=== PATIENT | male | born 1970 | race Caucasian/White ===

== ENCOUNTER 2020-08-09 12:33 | Observation (INO) | payer BC, SELFPAY ==
[2020-08-09] VITALS (7 sets, daily range): BP systolic 124–138; BP diastolic 69–82; PULSE 72–76; RESP 18–20; TEMP 36.7–38; O2SAT 93–97; BMI 35.2; BMI 34.7
--- NOTE | 2020-08-09 12:44 | ECG_ITS ---
APPROVED REPORT Exam: Resting ECG HR:78 bpm ECG Measurements Heart Rate 78 AXES LA 160 P 56 QRSd 94 QRS -51 QT 388 T 13 QTc 442 Conclusion Normal sinus rhythm Left anterior fascicular block Nonspecific T wave abnormality Abnormal ECG Electronically signed by : Denton Cervantes, 08/10/2020 06:01:03
--- NOTE | 2020-08-09 12:45 | HMH.EDGENADL ---
ED Disposition Clinical Impression: Pneumonia due to COVID-19 virus, Hypoxia Disposition: Admitted as Observation Condition on Discharge: Fair - Critical Care Critical Care Time: No Attestation: On , the high probability of a clinically significant, sudden or life threatening deterioration of the following system(s) required my full and direct attention, intervention and personal management. The time I documented below is in addition to time spent performing reported procedures but includes the following listed in this critical care notation. Medical Decision Making - Evin Inquiry Pt receiving controlled substance: No Vital Signs: 08/09/20 12:34 08/09/20 13:22 Temperature 99.0 F Temperature Source Oral Pulse Rate [Left Radial] 74 Respiratory Rate 20 Blood Pressure [Right Arm] 124/82 Blood Pressure Mean [Right Arm] 96 Blood Pressure Source [Right Arm] Automatic Cuff Blood Pressure Position [Right Arm] Sitting 02 Sat by Pulse Oximetry 93 L 94 L Oxygen Delivery Method Room Air Nasal Cannula Oxygen Flow Rate (LPM) 2 - Lab Data Lab results reviewed: Yes: I reviewed the patient's lab results. Lab Results 08/09/20 12:56: WBC 3.5 L, RBC 5.97, Hgb 17.8, Hct 50.3, MCV 84.3, MCH 29.9, MCHC 35.5 H, RDW 13.7, Plt Count 174, MPV 7.6, Neut % (Auto) 62.4, Lymph % (Auto) 29.7, [place] % (Auto) 5.4, Eos % (Auto) 2.1, Baso % (Auto) 0.4, Neut # (Auto) 2.2, Lymph # (Auto) 1.0, [place] # (Auto) 0.2, Eos # (Auto) 0.1, Baso # (Auto) 0.0 08/09/20 12:56: Lactate 1.1 Result diagrams: 08/09/20 12:56 Orders (Tests/Meds): ORDERS Category Date Time Status XR chest portable Stat Exams 08/09/20 13:22 Taken Comprehensive Metabolic Panel Stat Lab 08/09/20 12:56 Received Procalcitonin Stat Lab 08/09/20 12:56 Received Trop I [Troponin I] Stat Lab 08/09/20 12:56 Received Troponin I Q3H Lab 08/09/20 16:30 Ordered Troponin I Q3H Lab 08/09/20 19:30 Ordered Blood Culture Stat Micro 08/09/20 12:56 Received - Radiology Data #1 Image(s): Chest Image Reviewed: Yes I reviewed the patient's radiology image bilateral patchy infiltrates c/w covid-19 pneumonia - ECG Data Tracing #1 EKG interpreted by Fab Cobos MD: Rhythm: sinus Rate: 78 [place]: Left Ectopy: none Conduction: normal ST Segment Changes: none T Wave Changes: Nonspecific Q Waves: none No evidence of acute ischemia or injury - Physician Consults Physician Consulted: Albert Time: 13:45 Reason -: Admission, Pt condition Comment/Response: Agrees to admit the patient to the hospital. We discussed the patient's clinical information, including history, exam, laboratory and radiology results and ED course. Per hospital procedure, I will write temporary bridge inpatient orders on the patient. Specific orders requested by the admitting physician: Oxygen, COVID-19 protocol with remdesivir and dexamethasone. No antibiotics. General Adult HPI - General Stated complaint: Covid +, O2 low, dyspnea Time Seen by Provider: 08/09/20 13:15 - History of Present Illness HPI narrative: The patient has COVID-19. He had his nasal swab performed 9 days ago. He now presents complaining of shortness of breath. Shortness of breath started yesterday. He has been checking his pulse ox at home and this morning it went down to 89%, therefore he comes to the emergency department. His symptoms prior to that were fever, cough, headache, body aches, diarrhea. Denies vomiting. He has hypertension and hyperlipidemia. He does not have any known heart disease or lung disease. He is a non-smoker. He does not have diabetes. - Related Data Home Medications Medication Instructions Recorded Confirmed Amlodipine Besylate [Amlodipine 10 mg PO DAILY 08/09/20 08/09/20 10mg Tab] Rosuvastatin Calcium 20 mg PO DAILY 08/09/20 08/09/20 lisinopriL [Lisinopril 40mg Tablet] 40 mg PO DAILY 08/09/20 08/09/20 Allergies Allergy/AdvReac Type Severity R
--- NOTE | 2020-08-09 13:22 | XR_ITS ---
PROCEDURE: XR CHEST PORTABLE CLINICAL HISTORY: covid-19, soa, cough, fever COMPARISON: CR CXR1 CHEST-PORTABLE from 10/18/2014 CR CXR CHEST(2 VIEWS-NOT PORTABLE) from 05/27/2017 FINDINGS: The cardiomediastinal silhouette and pulmonary vascularity are within normal limits. Patchy infiltrate is present in the right upper lobe right lower lobe and left midlung with ground-glass attenuation consistent with Covid19 pneumonia No acute bony abnormalities. IMPRESSION: Bilateral pneumonia which may be related to Covid19 pneumonia Dictated by: Rodriguez Ellison MD 08/09/2020 14:01 Rodriguez Ellison MD in [place] 08/09/2020 14:01
[2020-08-09 13:42] LABS: Basophils % 0.4 % (0.1-2.0); Eosinophils # 0.1 K/mm3 (0.0-0.4); Eosinophils % 2.1 % (0.1-12.0); Hematocrit 50.3 % (42.0-52.0); Hemoglobin 17.8 g/dL (14.1-18.0); Lymphocytes % 29.7 % (10-50); Mean Corpuscular HGB Conc 35.5 g/dL (31.8-35.4); Mean Corpuscular Hemoglobin 29.9 pg (27.0-31.2); Mean Corpuscular Volume 84.3 fl (80-94); Mean Platelet Volume 7.6 fl (7.4-10.4); Monocytes # 0.2 K/mm3 (0.1-1.0); Monocytes % 5.4 % (1.7-9.3); Neutrophils # 2.2 K/mm3 (1.8-7.8); Neutrophils % 62.4 % (37.0-80.0); Platelet Count 174 K/mm3 (142-424); Red Blood Count 5.97 M/mm3 (4.60-6.20); Red Cell Distribution Width 13.7 % (11.5-17.5); White Blood Count 3.5 K/mm3 (4.8-10.8)
[2020-08-09 13:46] LABS: Lactic Acid 1.1 mmol/L (0.7-2.1)
[2020-08-09 14:10] LABS: Alanine Aminotransferase 29 U/L (12-78); Albumin Level 3.8 g/dl (3.5-5.0); Albumin/Globulin Ratio 1.2 (1.1-1.8); Alkaline Phosphatase 64 U/L (38-126); Anion Gap 11.8 mEq/L (5-15); Aspartate Amino Transferase 39 U/L (17-59); Bilirubin,Total 0.5 mg/dl (0.2-1.3); Blood Urea Nitrogen 13 mg/dl (9-20); Calcium 8.9 mg/dl (8.4-10.2); Carbon Dioxide 32 mmol/L (22.0-30.0); Creatinine Clearance Estimated 129 mL/min (50-200); Estimated Glomerular Filt Rate 79 ml/min (>60); GFR (African American) 96 ML/MIN (>60); Globulin 3.3 g/dL (1.3-3.2); Glucose 107 mg/dl (74-100); Potassium 3.8 mmoL/L (3.5-5.1); Sodium 138 mmol/L (136-145); Total Protein,Serum 7.1 g/dl (6.3-8.2)
[2020-08-09 14:12] LABS: Chloride 98 mmol/L (98-107)
[2020-08-09 14:23] LABS: Troponin I < 0.01 ng/ml (0.00-0.034)
[2020-08-09 14:27] LABS: Procalcitonin 0.125 ng/mL (0.0-2.0)
[2020-08-09 14:40] LABS: Adenovirus,PCR Not Detected (NotDetected); Bordetella Pertussis Not Detected (NotDetected); Chlamydophila Pneumoniae, PCR Not Detected (NotDetected); Coronavirus 229E Not Detected (NotDetected); Coronavirus NL63 Not Detected (NotDetected); Coronavirus OC43 Not Detected (NotDetected); Coronovirus HKU1,PCR Not Detected (NotDetected); Human Metapneumovirus Not Detected (NotDetected); Influenza A, PCR Not Detected (NotDetected); Influenza AH1, 2009 Not Detected (NotDetected); Influenza AH1, PCR Not Detected (NotDetected); Influenza AH3,PCR Not Detected (NotDetected); Influenza B, PCR Not Detected (NotDetected); Mycoplasma Pneumoniae, PCR Not Detected (NotDetected); Parainfluenza 1, PCR Not Detected (NotDetected); Parainfluenza 2, PCR Not Detected (NotDetected); Parainfluenza 3, PCR Not Detected (NotDetected); Parainfluenza 4, PCR Not Detected (NotDetected); Respiratory Syncytial Virus Not Detected (NotDetected); Rhinovirus/Enterovirus Not Detected (NotDetected)
--- NOTE | 2020-08-09 15:47 | HMH.PHAVTE ---
[facility] Pharmacy VTE Monitoring - Patient Demographics Admission date: 08/09/20 Report Date: 08/09/20 Time: 15:47 Allergies/Adverse Reactions: Patient Allergies No Known Allergies Allergy (Unverified 07/14/17 15:37) Height: 1.7 m Weight: 102.058 kg Patient Problems: Current Active Problems Pneumonia due to COVID-19 virus (Acute) Hypoxia (Acute) - VTE Risk Labs: VTE Related Lab Results Hgb 17.8 g/dL (14.1-18.0) 08/09/20 12:56 Hct 50.3 % (42.0-52.0) 08/09/20 12:56 Plt Count 174 K/mm3 (142-424) 08/09/20 12:56 BUN 13 mg/dl (9-20) 08/09/20 12:56 Creatinine 1.00 mg/dl (0.66-1.25) 08/09/20 12:56 Estimated Creat Clear 129 mL/min (50-200) 08/09/20 12:56 Clinical Trial Participant: No - Prophylaxis VTE Prophylaxis Ordered?: Yes Types of VTE Prophylaxis: TEDS Knee High
[2020-08-09 16:05] LABS: Coronavirus 19, PCR Detected (NotDetected)
--- NOTE | 2020-08-09 16:05 | PC.NURSE ---
Pt arrived via w/c to the floor at this time
--- NOTE | 2020-08-09 16:27 | HMH.PHAINT ---
MEDICATION RECONCILIATION COMPLETED ON PATIENT USING EXTERNAL FILL HISTORY FROM PHARMACY. -WADE ALLEN, MEMOD
--- NOTE | 2020-08-09 20:02 | PC.NURSE ---
PT IS SITTING ON THE SOB WATCHING TV AT THIS TIME. ALERT AND ORIENTED X4. O2 SATURATION 94-96% ON 2 NC. LUNG SOUNDS HAVE FINE CRACKLES IN THE BASES. ABDOMEN SOFT/NON TENDER WITH ACTIVE BOWEL SOUNDS. PT STATED HIS LAST BOWEL MOVEMENT WAS TODAY. EATING AND DRINKING FAIR. VSS. WILL CONTINUE TO MONITOR.
[2020-08-10] VITALS: BP 117/73; PULSE 64; RESP 18; TEMP 36.6; O2SAT 97
[2020-08-10 04:00] VITALS: BP 140/77; PULSE 90; RESP 18; TEMP 36.4; O2SAT 98
--- NOTE | 2020-08-10 04:54 | PC.NURSE ---
Pt has been pleasant and cooperative this shift. A&O X4. No complaints of pain or SOA. Pt is receiving O2 via NC @ 2 LPM with sats. >90%. Lungs CTA. Skin is C/D/I. No edema noted. 2000 temperature noted to 100.4. After administration of Tylenol, temperature noted to be 98.0. Pt ambulates independently. Pt uses the urinal to void clear, yellow urine without issue. No BM thus far this shift. 20 G peripheral IV in the LT AC is patent and infusing NS @ 100 ML/HR. VSS. Call light within reach. Will continue to monitor.
--- NOTE | 2020-08-10 06:00 | XR_ITS ---
PROCEDURE: XR CHEST PORTABLE CLINICAL HISTORY: covid Covid19 pneumonia COMPARISON: CR CXR1 CHEST-PORTABLE from 10/18/2014 CR CXR CHEST(2 VIEWS-NOT PORTABLE) from 05/27/2017 CR XR CHEST PORTABLE from 08/09/2020 FINDINGS: The cardiomediastinal silhouette and pulmonary vascularity are within normal limits. Patchy infiltrate in the right upper lobe appears slightly improved. No change right lower lobe infiltrate. Left perihilar infiltrate appears slightly improved. No acute bony abnormalities. IMPRESSION: Overall slight improvement in the bilateral pneumonia Dictated by: Rodriguez Ellison MD 08/10/2020 06:47 Rodriguez Ellison MD in [place] 08/10/2020 06:47
[2020-08-10 07:55] VITALS: BP 137/73; PULSE 73; RESP 19; TEMP 37; O2SAT 95
[2020-08-10 08:00] VITALS: O2SAT 97
--- NOTE | 2020-08-10 08:36 | CT_ITS ---
PROCEDURE: CT ANGIO CHEST CLINCIAL INDICATION: covid r/o pe Shortness of air, cough, Covid19 pneumonia COMPARISON: CR XR CHEST PORTABLE from 08/10/2020 TECHNIQUE: IV Contrast: 70ML Isovue 370 Axial images obtained with sagittal and coronal reformats. All CT scans at the facility use one or more dose reduction, viz: automated exposure control, ma/kV adjustment per patient size (including targeted exams where dose is matched to indication, i.e. head), or iterative reconstruction technique. FINDINGS: No mediastinal or hilar mass . No evidence of aortic aneurysm dissection or pulmonary embolus. There are few scattered small hilar and mediastinal lymph nodes which may be reactive. There are scattered multifocal areas of ground-glass infiltrates along with consolidation in the lower lobes posteriorly consistent with bilateral pneumonia which may be related Covid19. There is borderline cardiomegaly.. There are trace effusions on both sides. No cavitation. There is nonspecific thickening of the distal esophagus. Upper abdominal images show cholelithiasis. There is mild wedging of L1 which may be chronic. IMPRESSION: 1. No evidence of pulmonary embolus. 2. Bilateral pneumonia in the lower lobes posteriorly and multi focal in the upper lobes which may be related to Covid19 with trace bilateral effusions. 3. Cholelithiasis Dictated by: Rodriguez Ellison MD 08/10/2020 10:00 Rodriguez Ellison MD in [place] 08/10/2020 10:00
--- NOTE | 2020-08-10 10:41 | SW/DCPLANNER ---
Addendum entered by Charity Saldivar 08/10/20 10:51: Bess with [facility] has confirmed patient information/order has been reviewed and O2 will be delivered to [facility] today. Original Note: This patient is planned to discharge home later today. Patient information and order has been faxed to [facility]. I will follow up with [facility] once patient information is reviewed.
[2020-08-10 12:00] VITALS: BP 130/61; PULSE 80; RESP 20; TEMP 36.8; O2SAT 99
--- NOTE | 2020-08-10 12:47 | HMH.HPDC ---
General - General Admission date:: 08/09/20 Discharge date: 08/10/20 *Admission Date: 08/09/20 *Chief complaint: soa *History of present illness: 49 yr old male presented to ED with c/o of soa. Patient has COVID-19, Nasal swab performed 9 days ago. Patient complaining of shortness of breath, Shortness of breath started yesterday. Patient states he has been checking his pulse ox at home and this morning it went down to 89%. Patient states history hypertension and hyperlipidemia. Patient admitted for covid related penumonia. [facility] History I have reviewed the patient's past medical history: Yes Medical History: Reports:: Hyperlipidemia, Hypertension Denies:: Cancer, Diabetes Mellitus Type 1, Diabetes Mellitus Type 2, MRSA *Have you ever received a pneumonia vaccine?: No *Have you received a flu vaccine this season?: No Amputation: No Fractures: No - *Social History Last grade of school completed: High school graduate Smoking Status: Never smoker Alcohol Intake: never *Occupational Status:: employed Housing: house Household Members: spouse *Travel in the last 8 weeks: None Family Hx:: Cancer Review of Systems - Review of Systems Review of systems:: pertinent systems reviewed and negative unless documented below - Constitutional Reports fatigue, Reports fever(s), Denies body ache(s) - Eyes Denies blurry vision - ENT Denies sinus pain - *Cardiovascular Reports shortness of breath, Reports shortness of breath with activity, Denies chest pain with activity - *Respiratory Reports chest congestion, Reports cough, Reports shortness of breath - *Gastrointestinal Denies nausea, Denies vomiting - *Genitourinary Denies urinary frequency - *Musculoskeletal Denies muscle weakness - Integumentary/Breasts Denies rash - *Neurologic Reports headache(s) - Psychiatric Denies anxiety - Endocrine Denies flushing - Hematologic/Lymphatic Denies enlarged lymph nodes - Allergic/Immunologic Denies itchy eyes Exam Vital signs and Labs for Last 24 Hours: Temp Pulse Resp BP Pulse Ox 98.3 F 80 20 130/61 99 08/10/20 12:00 08/10/20 12:00 08/10/20 12:00 08/10/20 12:00 08/10/20 12:00 Laboratory Results - last 24 hr 08/09/20 12:56: WBC 3.5 L, RBC 5.97, Hgb 17.8, Hct 50.3, MCV 84.3, MCH 29.9, MCHC 35.5 H, RDW 13.7, Plt Count 174, MPV 7.6, Neut % (Auto) 62.4, Lymph % (Auto) 29.7, [place] % (Auto) 5.4, Eos % (Auto) 2.1, Baso % (Auto) 0.4, Neut # (Auto) 2.2, Lymph # (Auto) 1.0, [place] # (Auto) 0.2, Eos # (Auto) 0.1, Baso # (Auto) 0.0 08/09/20 12:56: Sodium 138, Potassium 3.8, Chloride 98, Carbon Dioxide 32 H, Anion Gap 11.8, BUN 13, Creatinine 1.00, Estimated Creat Clear 129, Estimated GFR 79, Est GFR ( Amer) 96, Glucose 107 H, Calcium 8.9, Total Bilirubin 0.5, AST 39, ALT 29, Alkaline Phosphatase 64, Troponin I < 0.01, Total Protein 7.1, Albumin 3.8, Globulin 3.3 H, Albumin/Globulin Ratio 1.2, Procalcitonin 0.125 08/09/20 12:56: Lactate 1.1 08/09/20 14:36: Chlamy pneumoniae PCR Not detected, Adenovirus (PCR) Not detected, B. pertussis DNA (PCR) Not detected, Coronavirus OC43 (PCR) Not detected, Coronavirus HKU1 (PCR) Not detected, Coronavirus 229E (PCR) Not detected, SARS-CoV-2 (PCR) Detected A, Coronavirus NL63 (PCR) Not detected, Human Metapneumovir PCR Not detected, Influenza A (H1) PCR Not detected, Influ A (H1N1/09) PCR Not detected, Influenza A (H3) PCR Not detected, Influenza Type A (PCR) Not detected, Influenza Type B (PCR) Not detected, M. pneumoniae (PCR) Not detected, Parainfluenza 1 (PCR) Not detected, Parainfluenza 2 (PCR) Not detected, Parainfluenza 3 (PCR) Not detected, Parainfluenza 4 (PCR) Not detected, RSV (PCR) Not detected, Entero/Rhino (PCR) Not detected I & O for Last 24 hours: Intake & Output 08/08/20 08/09/20 08/10/20 08/11/20 11:59 11:59 11:59 11:59 Intake Total 2126 / 2126 Output Total 1000 / 1000 Balance 1126 / 1126 Weight 235 lb 6 oz - Constitutional
--- NOTE | 2020-08-10 13:43 | HMH.PULMCON ---
*Admission Date: 08/09/20 *Reason for consult:: Acute hypoxic respiratory failure, COVID-19 pneumonia *History of present illness: Mr. Major is a 49-year-old male no prior respiratory complaints never smoker recently diagnosed with COVID-19 pneumonia August 09 no symptoms at that time, discharged home presented to the hospital with worsening respiratory failure, patient admission needing 2 L nasal cannula eventually weaned to room air. Pulmonary was called for further management. Patient on further questioning today denies any fevers, chills, productive phlegm. His main symptoms are fatigue. Patient states symptoms significantly improved since admission. [facility] History Medical History: Reports:: Hyperlipidemia, Hypertension Denies:: Cancer, Diabetes Mellitus Type 1, Diabetes Mellitus Type 2, MRSA *Have you ever received a pneumonia vaccine?: No *Have you received a flu vaccine this season?: No Amputation: No Fractures: No - *Social History Last grade of school completed: High school graduate Smoking Status: Never smoker Alcohol Intake: never *Occupational Status:: employed Housing: house Household Members: spouse *Travel in the last 8 weeks: None Family Hx:: Cancer ROS - Review of Systems Review of systems:: pertinent systems reviewed and negative unless documented below - Cons Reports body ache(s) - Card Reports shortness of breath with activity, Reports lightheadedness, Denies leg swelling - Resp Respiratory: Reports chest congestion, Reports cough, Reports non-productive cough, Reports dyspnea on exertion, Denies excessive phlegm production - GI Gastrointestingal: Reports: system reviewed and no additional complaints, except as docu - [place] Musculoskeletal: Reports system reviewed and no additional complaints, except as docu Meds Home Medications Medication Instructions Recorded Confirmed Type Amlodipine Besylate [Amlodipine 10 mg PO DAILY 08/09/20 08/09/20 History 10mg Tab] Rosuvastatin Calcium 20 mg PO DAILY 08/09/20 08/09/20 History lisinopriL [Lisinopril 40mg Tablet] 40 mg PO DAILY 08/09/20 08/09/20 History Allergies Allergy/AdvReac Type Severity Reaction Status Date / Time No Known Allergies Allergy Unverified 07/14/17 15:37 Exam - Constitutional Constitutional:: no acute distress, comfortable - HENMT Exam HENMT: normocephalic, atraumatic - Eye Exam Eyes:: eyelids normal, normal conjunctiva - Neck Exam Neck:: thyroid normal, no lymphadenopathy - Respiratory Exam Respiratory:: able to speak in complete sentences, lungs clear, no respiratory distress - Cardiovascular Exam Cardiac:: S1, S2 - GI Exam GI:: soft, no hepatosplenomegaly - Skin Exam Skin: warm, no rash, dry - Neurological Exam Neurological: awake, normal cognition - Extremities Exam Extremities: no cyanosis, no clubbing, no edema - Psychiatric Exam Psychiatric: normal affect Internal Medicine - CN: Reslt - Labs CBC & Chem 7: 08/09/20 12:56 08/09/20 12:56 Labs: Short CBC 08/09/20 Range/Units 12:56 WBC 3.5 L (4.8-10.8) K/mm3 Hgb 17.8 (14.1-18.0) g/dL Hct 50.3 (42.0-52.0) % Plt Count 174 (142-424) K/mm3 BMP 08/09/20 12:56 Sodium 138 Potassium 3.8 Chloride 98 Carbon Dioxide 32 H BUN 13 Creatinine 1.00 Glucose 107 H Calcium 8.9 Cardiac Enzymes 08/09/20 Range/Units 12:56 Troponin I < 0.01 (0.00-0.034) ng/ml Liver Function 08/09/20 Range/Units 12:56 Total Bilirubin 0.5 (0.2-1.3) mg/dl AST 39 (17-59) U/L ALT 29 (12-78) U/L Alkaline Phosphatase 64 (38-126) U/L Albumin 3.8 (3.5-5.0) g/dl Assessment and Plan - Assessment and plan all Dx Assessment and Plan for all problems:: #COVID-19 pneumonia: 49-year-old male never smoker no prior respiratory complaints diagnosed with Covid pneumonia 10 days ago planing worsening respiratory failure initially needing 2 L nasal cannula, subsequently weaned to karina
--- NOTE | 2020-08-10 15:00 | PC.NURSE ---
pt given cupand instructed to place any sputum produed in cup and call out.
[2020-08-10 15:53] VITALS: BP 117/71; PULSE 85; RESP 18; TEMP 37.2; O2SAT 95
== END 2020-08-10 17:00 | disposition home or self-care (01) ==
LOC: ER 12:47 → 2ND 13:53
PROVIDERS: Admitting Provider Family Medicine; Emergency Provider Emergency Medicine; PCP Nurse Practitioner Family; Visit Provider Family Medicine
DX: U07.1 COVID-19 (principal); J12.89 Other viral pneumonia; J96.01 Acute respiratory failure with hypoxia; I10 Essential (primary) hypertension; E78.5 Hyperlipidemia, unspecified; Z79.899 Other long term (current) drug therapy
CPT/HCPCS: 71045; 71275; 80053; 83605; 84145; 84484; 85025; 87040; 87581; 87633; 87798; 93005; 94761; 99284; G0378; Q9967; U0003

== ENCOUNTER → 2021-03-25 10:27 | Outpatient (CLI) | payer BC, SELFPAY ==
--- NOTE | 2021-03-25 10:34 | XR_ITS ---
PROCEDURE: XR KNEE LT 4V CLINICAL INDICATION: LT MEDIAL KNEE PAIN COMPARISON: No exams were available for comparison FINDINGS: Mild osteoarthritic changes involving medial compartment and patellofemoral joint. 2 calcifications overlie the medial compartment at the tibial spine area consistent with loose bodies. These measure approximately 5 mm each these are anterior. No obvious fracture or dislocation. Other findings:None. IMPRESSION: Mild osteoarthritic changes with loose bodies along the anterior aspect of the medial compartment Dictated by: Rodriguez Ellison MD 03/25/2021 10:57 Rodriguez Ellison MD in [place] 03/25/2021 10:57
== END ==
PROVIDERS: PCP Nurse Practitioner Family; Visit Provider Nurse Practitioner Family
DX: M25.562 Pain in left knee (principal)
CPT/HCPCS: 73564

== ENCOUNTER → 2021-04-06 09:36 | Outpatient (CLI) | payer BC, SELFPAY ==
--- NOTE | 2021-04-06 09:36 | MR_ITS ---
PROCEDURE INFORMATION: Exam: MR Left Lower Extremity Joint Without Contrast, Knee Exam date and time: 04/06/2021 9:36 AM Age: 50 years old Clinical indication: Pain; Knee; Left; Additional info: Evaluate for meniscal tear; Loose body. Knee pain [id number]. No injury or trauma. Medial sided knee pain with swelling to foot. Knee instability. Prior x-ray 03-25-21 TECHNIQUE: Imaging protocol: MR of the Left lower extremity joint without contrast. Exam focused on the knee. COMPARISON: CR XR KNEE LT 4V 03/25/2021 10:36 AM FINDINGS: Bones and cartilage: Irregularity of the patellar cartilage, with cartilage thinning at the medial facet. Minimal subchondral edematous change within the patella. Tricompartment degenerative spurring visualized. There is irregularity and heterogeneous signal intensity of the cartilage in the medial compartment of the knee. Joint spaces: Small patellofemoral joint effusion. Bursae: No significant Sibley cyst. Medial meniscus: Horizontal tear of the posterior horn of the medial meniscus. A tear is visualized within the anterior horn of the medial meniscus. A suggested tear is also seen within the body of the medial meniscus, with mild extrusion of the body. A small ossific loose body is identified within the posterior aspect of Hoffa's fat and adjacent to the anterior root of the medial meniscus. Lateral meniscus: Mild myxoid degeneration of the lateral meniscus, without a definitive meniscal tear contacting an articulating surface. Anterior cruciate ligament: No visualized tear. Posterior cruciate ligament: No visualized tear. Small fluid collections are identified posterior to the PCL. A few hypointense loose bodies are identified within one of these fluid collections. Medial capsule and supporting structures: Mild edema overlying the medial collateral ligament, consistent with a grade 1 MCL injury/sprain. Lateral capsule and supporting structures: Unremarkable. No tear. Extensor mechanism of knee: Mild tendinosis of the patellar tendon, with heterogeneous signal intensity. No visualized tear of the distal quadriceps tendon. Swelling is overlying the medial and lateral patellar retinacula, without definitive tear. Muscles: No visualized acute abnormality. Soft tissues: Soft tissue swelling is identified, most significant anteriorly. Edema within Hoffa's fat. IMPRESSION: 1. Medial meniscal tears. 2. Grade 1 MCL injury/sprain. 3. Small patellofemoral joint effusion. 4. Soft tissue swelling is identified, most significant anteriorly. 5. Tricompartment degenerative changes. 6. Small fluid collections are identified posterior to the PCL. A few hypointense loose bodies are identified within one of these fluid collections. An additional loose body is seen within Hoffa's fat. Differential considerations include synovial chondromatosis and PVNS. 7. Additional findings described above.
== END ==
PROVIDERS: PCP Nurse Practitioner Family; Visit Provider Orthopaedic Surgery
DX: S89.92XA Unspecified injury of left lower leg, initial encounter (principal)
CPT/HCPCS: 73721

== ENCOUNTER → 2021-04-19 15:04 | Outpatient (CLI) | payer BC, SELFPAY ==
[2021-04-19 15:50] LABS: Basophils # 0.1 K/mm3 (0-0.2); Basophils % 0.9 % (0.1-2.0); Eosinophils # 0.2 K/mm3 (0.0-0.4); Eosinophils % 2.8 % (0.1-12.0); Hematocrit 49.5 % (42.0-52.0); Hemoglobin 17.1 g/dL (14.1-18.0); Lymphocytes # 2.1 K/mm3 (0.7-4.5); Lymphocytes % 27.1 % (10-50); Mean Corpuscular HGB Conc 34.5 g/dL (31.8-35.4); Mean Corpuscular Volume 89.9 fl (80-94); Mean Platelet Volume 7.8 fl (7.4-10.4); Monocytes # 0.5 K/mm3 (0.1-1.0); Monocytes % 5.8 % (1.7-9.3); Neutrophils # 4.9 K/mm3 (1.8-7.8); Neutrophils % 63.4 % (37.0-80.0); Platelet Count 186 K/mm3 (142-424); Red Blood Count 5.51 M/mm3 (4.60-6.20); White Blood Count 7.7 K/mm3 (4.8-10.8)
[2021-04-19 16:25] LABS: Chloride 105 mmol/L (98-107); Sodium 141 mmol/L (136-145)
[2021-04-19 16:26] LABS: Potassium 3.6 mmoL/L (3.5-5.1)
[2021-04-19 16:28] LABS: Alanine Aminotransferase 64 U/L (12-78); Albumin Level 4.2 g/dl (3.5-5.0); Albumin/Globulin Ratio 1.8 (1.1-1.8); Alkaline Phosphatase 76 U/L (38-126); Anion Gap 13.6 mEq/L (5-15); Aspartate Amino Transferase 49 U/L (17-59); Bilirubin,Total 0.3 mg/dl (0.2-1.3); Blood Urea Nitrogen 12 mg/dl (9-20); Carbon Dioxide 26 mmol/L (22.0-30.0); Estimated Glomerular Filt Rate 79 ml/min (>60); GFR (African American) 96 ML/MIN (>60); Globulin 2.4 g/dL (1.3-3.2); Total Protein,Serum 6.6 g/dl (6.3-8.2)
[2021-04-19 16:29] LABS: Calcium 8.8 mg/dl (8.4-10.2); Glucose 103 mg/dl (74-100)
== END ==
PROVIDERS: Visit Provider Orthopaedic Surgery
DX: Z01.812 Encounter for preprocedural laboratory examination (principal); Z11.52 Encounter for screening for COVID-19; M17.12 Unilateral primary osteoarthritis, left knee
CPT/HCPCS: 36415; 80053; 85025; C9803; U0003; U0005

== ENCOUNTER 2021-04-22 07:52 | Day surgery (SDC) | payer BC, SELFPAY ==
[2021-04-18 14:42] VITALS: BMI 37.3
[2021-04-22] VITALS (9 sets, daily range): BP systolic 124–153; BP diastolic 58–98; PULSE 60–75; RESP 16–18; TEMP 36.4–36.7; O2SAT 91–99
--- NOTE | 2021-04-22 12:47 | P.PN_ITS ---
[facility] Anesthesia Checklist - Patient Identification Patient Identification: Arm Band, Verbal (Name & ) - Structural Data Admitted From: Home Planned Operative Procedure/s: left knee scope Consent for Planned Operative Procedure(s) Verified: Yes Verified Documents: History and Physical - NPO Status Verified Time NPO: 00:00 - Chart Verification Results Verified: CBC, BMP - Additional verifications Patient : No Anesthesia Reactions: No Hx Blood Transfusions: No Blood Transfusion Reaction: No Cephalosporin Allergy: No Previous Colonoscopy: Yes - Cardiovascular Assessment Heart Sounds: S1 & S2 Pulse Strength: Baseline Pulse Rhythm: Regular Peripheral Edema: No - Airway Assessment C-Spine Mobility Assessed: Yes TMJ Mobility Assessed: Yes Dentition: Good Dentition - Neurological Assessment Level of Consciousness: Awake, Alert, Appropriate Hx Seizures: No Numbness or tingling in extremities: No - Anesthesia Plan Anesthesia Risk discussed: Yes Anesthesia Plan: Verified ASA Class: III Anesthesia Type: General [facility] History I have reviewed the patient's past medical history: Yes Medical History: Reports:: Hyperlipidemia, Hypertension Denies:: Cancer, Diabetes Mellitus Type 1, Diabetes Mellitus Type 2, Internal Pacemaker, MRSA, Seizures *Have you ever received a pneumonia vaccine?: No *Have you received a flu vaccine this season?: Yes Other Medical History: Reports: Arthritis. Denies: Blood Transfusion Reaction Anesthesia experience/problems:: none Laterality Cases: Right: Arthroscopy Shoulder Other Surgeries: No: Pacemaker Amputation: No Fractures: No - *Social History Last grade of school completed: High school graduate Smoking Status: Never smoker Alcohol Intake: current Alcohol Intake Frequency:: a few times a week Substance Use Type: other *Occupational Status:: employed Housing: house Household Members: spouse *Travel in the last 8 weeks: None Family Hx:: Cancer
--- NOTE | 2021-04-22 12:48 | HMH.ANESI ---
[facility] Anesthesia Record Part I Intake, IV Amount: 800 Estimated blood loss (mL): 10 Urine output (mL): 0 Blood Products used (#): none Blood Pressure: 125/92 SaO2: 94 Pulse Rate: 74 Respiratory Rate: 18 Temperature: 97.6 F Patient is:: Drowsy, Nasal O2, Stable Stable to PACU at:: 12:43
--- NOTE | 2021-04-22 13:11 | PC.NURSE ---
1311-detailed report called to SonjaRN
--- NOTE | 2021-04-22 13:55 | HMH.ANESII ---
[facility] Anesthesia Record Part II Discharge Time: 13:13 Destination: Surgical Day Care (OP Surgery) PACU nurse assessment reviewed?: Yes Patient Condition:: Good Anesthesia Complications:: None Swallowing reflex intact?: Yes Cyanosis?: No Blood Pressure: 132/82 Pulse Rate: 72 Temperature: 97.6 F Mental Status: Alert & Oriented Pain level:: 1 Nausea and/or vomitting:: None Intake, IV Amount: 50
--- NOTE | 2021-04-22 23:33 | HMH.OPNOTE ---
Date of procedure: 04/22/21 Pre-op Diagnosis:: 1. Medial meniscal tear, left knee 2. Osteoarthritis, left knee 3. Loose bodies, left knee Post-op Diagnosis:: 1. Complex degenerative tear, medial meniscal tear, left knee 2. Osteoarthritis, left knee 3. Loose bodies, left knee 4. Pathological medial plica, left knee 5. Synovitis, left knee Procedure performed:: 1. Examination of left knee under anesthesia 2. Partial medial meniscectomy, left knee 3. Chondroplasty, left knee 4. Resection of medial plica, left knee 5. Removal of loose bodies, left knee 6. Synovial biopsy, left knee Surgeon:: Artemio Hampton MD Thermodynamics Engineer(s):: Caitlyn Grimaldo PA-C SALESPERSON MEN'S HATS:: Other (Denton Taylor) Anesthesia: LMA Estimated blood loss (mL): 5 Clinical Note:: The patient is a 50-year-old male with left knee pain following a work-related injury over 6 weeks ago which is unresponsive to conservative management and evidence of a medial meniscal tear, multiple loose bodies and degenerative changes on imaging. Clinically his symptoms are consistent with the above diagnosis. Resection of the torn medial meniscus, removal of loose bodies, chondroplasty and debridement is indicated to relieve the pain and improve function of the knee. Please refer to my office note for full details. Operative findings:: Examination of the left knee under anesthesia, showed a stable knee joint. There is a small amount of knee joint effusion. Knee range of motion is from 0-130? of flexion. Operative findings showed diffuse grade grade 2- 3 changes over patellofemoral articulation and grade 3-4 changes over the the medial femoral condyle; grade 2 changes were noted over the lateral tibial plateau. The lateral femoral condyle and medial tibial plateau are relatively well preserved. The medial meniscus had a complex degenerative tear involving the body, anterior and posterior horns. The lateral meniscus was noted to be intact. There were multiple osteochondral loose bodies; also there was a lot of debris and multiple small cartilaginous loose bodies in the knee. The anterior cruciate ligament and posterior cruciate ligaments were intact. A thickened and pathological medial plica was noted. Florid synovitis was noted. Operative note:: On the day of the procedure the patient and his were met in the preoperative area and positively identified. A physical examination was performed and documented. The limb was marked and initialed by me. I have again discussed the diagnosis, management options including both nonsurgical and surgical. I have discussed the proposed surgical procedure, risks and benefits and alternatives in detail. The complications discussed include but are not limited to infection, injury to nerves and blood vessels, injury to the ligaments and tendons, knee stiffness, arthrofibrosis, incomplete relief, incomplete functional recovery, DVT, PE, CRPS, complications related to anesthesia including heart attack, stroke and even . I have also discussed about the likely need for further surgery in future. I told him that there were no guarantees with surgery; he could be no better or even worse. We also discussed the postoperative recovery and rehabilitation that might be needed. I believe the patient to be well informed with regard to the proposed surgery. I told him that it would take few months for full recovery of the knee after surgery. He expressed a full understanding and wished to proceed with the planned surgery. Patient understood the risks, agreed to proceed with surgery, and no guarantees or assurances were given or implied. Patient was brought to the operating room and placed supine on the operating table. All the bony prominences were appropriately padded. A general anesthesia was administered by the gray mixing operator. A well-padded tourniquet cuff was placed over the left upper thigh. Examination of the left knee under anesthesia was performed. A small amount of knee
== END 2021-04-22 13:43 | disposition home or self-care (01) ==
PROVIDERS: PCP Nurse Practitioner Family; Visit Provider Orthopaedic Surgery
PROC: (CPT 29870; principal; 2021-04-22 09:30)
DX: S83.232A Complex tear of medial meniscus, current injury, left knee, initial encounter (principal); M23.42 Loose body in knee, left knee; M17.12 Unilateral primary osteoarthritis, left knee; M25.562 Pain in left knee; V68.4XXA Person boarding or alighting a heavy transport vehicle injured in noncollision transport accident, initial encounter; M67.52 Plica syndrome, left knee
CPT/HCPCS: 29881; 29879; 96374; J2405

== ENCOUNTER 2021-07-13 18:16 | Emergency (ER) | payer BC, SELFPAY ==
[2021-07-13 18:24] VITALS: BP 142/97; PULSE 86; RESP 20; TEMP 36.9; O2SAT 97; BMI 36.9
--- NOTE | 2021-07-13 19:09 | HMH.EDUTC ---
[facility] Disposition Clinical Impression: Allergic reaction Qualifiers: Encounter type: initial encounter Qualified Code(s): T78.40XA - Allergy, unspecified, initial encounter Disposition: Home, Self-Care Condition on Discharge: Good Instructions: DI for General Allergic Reactions, Methylprednisolone Additional Instructions: Try to avoid contact with the offending substance. Don't start the oral steroids until tomorrow. Once you get off the steroids your symptoms may start to return if you are still getting exposed to whatever caused this. Please return of f/u with your doctor if necessary. Take benedryl regularly for the next few days if you can afford to be very drowsy. Follow up with your regular doctor. GO TO THE ER FOR ANY WORSENING SYMPTOMS OR CONCERNS Prescriptions: methylPREDNISolone [Medrol] 4 mg PO DIRECTED 6 Days #21 packet Transmission Status: Received by [facility] Referrals: Samantha Brannon APRN [Primary Care Provider] - Time of Disposition: 19:18 Medical Decision Making - Medical Records Medical records reviewed: No: I reviewed the patient's medical records. - Evin Inquiry Pt receiving controlled substance: No Vital Signs: 07/13/21 18:24 Temperature 98.5 F Temperature Source Oral Pulse Rate [Left] 86 Respiratory Rate 20 Blood Pressure [Right Arm] 142/97 H Blood Pressure Mean [Right Arm] 112 02 Sat by Pulse Oximetry 97 [facility] [place] HPI - General Stated complaint: hives Time Seen by Provider: 07/13/21 18:40 Mode of Arrival: Ambulatory Source of Information: Patient Limitations: No Limitations Description of Symptoms (Recalled from Triage Doc. by RN): pt states he has had hives and itching ongoing for about a week after starting some new meds. HEENT Symptoms (Recalled from RN notes): No Resp Symptoms (Recalled from RN notes): No Skin Symptoms (Recalled from RN notes): Yes MS Symptoms (Recalled from RN notes): No Functional Status (Recalled from RN notes): wnl - History of Present Illness Provider Complaint: He has had generalized itching and hives for the past 3 days. He was started on buproprion and doxazosin 2 weeks ago, but he stopped them as soon as he started itching. He states that his itching and hives are getting worse instead of better. He denies any shortness of breath, chest pain, swelling of his mouth or throat. - Related Data Home Medications Medication Instructions Recorded Confirmed Amlodipine Besylate [Amlodipine 10 mg PO DAILY 08/09/20 06/11/21 10mg Tab] Rosuvastatin Calcium 20 mg PO DAILY 08/09/20 06/11/21 Previous Rx's Medication Instructions Recorded methylPREDNISolone [Medrol] 4 mg PO DIRECTED 6 Days #21 07/13/21 packet Allergies Allergy/AdvReac Type Severity Reaction Status Date / Time lisinopril Allergy Mild Verified 06/11/21 10:20 - Worker's Comp Is this a Worker's Comp case?: No [facility] History - Hepatitis A Screen Drug use history?: No High risk sexual behaviors?: No History of sexually transmitted infection?: No Currently employed?: No Childcare worker?: No Do you have indoor plumbing?: Yes Do you have electricity?: Yes Attestation statement:: This patient has been screened for Hepatitis A risk factors. I have reviewed the patient's past medical history: Yes Medical History: Reports:: Hyperlipidemia, Hypertension Denies:: Cancer, Diabetes Mellitus Type 1, Diabetes Mellitus Type 2, Internal Pacemaker, MRSA, Seizures Other Medical History: Reports: Arthritis. Denies: Blood Transfusion Reaction Laterality Cases: Left: Arthroscopy Knee, Right: Arthroscopy Shoulder Other Surgeries: No: Pacemaker Amputation: No Fractures: No - Social History Smoking Status: Never smoker Alcohol Intake: current Alcohol Intake Frequency:: a few times a week Substance Use Type: other Occupational Status: employed Housing: house Household Members: spouse Family Hx:: Cancer ROS Obtained: Yes All systems reviewed &
[2021-07-13 19:32] VITALS: BP 142/97; PULSE 86; RESP 20; TEMP 36.9
== END 2021-07-13 19:33 | disposition home or self-care (01) ==
LOC: UTC 18:17 → ER 19:02 → UTC 19:10
PROVIDERS: Emergency Provider Nurse Practitioner Family; PCP Nurse Practitioner Family
DX: L50.0 Allergic urticaria (principal); T43.295A Adverse effect of other antidepressants, initial encounter; E78.5 Hyperlipidemia, unspecified; I10 Essential (primary) hypertension
CPT/HCPCS: 96372; 99202; G0463

== ENCOUNTER → 2021-09-30 10:54 | Outpatient (CLI) | payer BC, SELFPAY | PROVIDERS: Visit Provider Surgery | DX: Z01.812 Encounter for preprocedural laboratory examination (principal); Z11.52 Encounter for screening for COVID-19; Z12.11 Encounter for screening for malignant neoplasm of colon | CPT/HCPCS: C9803; U0003; U0005 ==

== ENCOUNTER 2021-10-01 08:26 | Day surgery (SDC) | payer BC, SELFPAY ==
[2021-09-30 09:00] VITALS: BMI 36.9
[2021-10-01 08:37] VITALS: BP 141/67; PULSE 74; RESP 18; TEMP 36.8; O2SAT 97
--- NOTE | 2021-10-01 08:55 | P.PN_ITS ---
[facility] Anesthesia Checklist - Patient Identification Patient Identification: Arm Band - Structural Data Admitted From: Home Planned Operative Procedure/s: Colonoscopy Consent for Planned Operative Procedure(s) Verified: Yes - NPO Status Verified Time NPO: 00:00 - Additional verifications Anesthesia Reactions: No Hx Blood Transfusions: No Blood Transfusion Reaction: No - Airway Assessment C-Spine Mobility Assessed: Yes TMJ Mobility Assessed: Yes Dentition: Poor Dentition - Neurological Assessment Level of Consciousness: Awake Hx Seizures: No Numbness or tingling in extremities: No - Anesthesia Plan Anesthesia Risk discussed: Yes Anesthesia Plan: Verified ASA Class: II Anesthesia Type: MAC [facility] History I have reviewed the patient's past medical history: Yes Medical History: Reports:: Gastroesophageal Reflux Disease(GERD), Hyperlipidemia, Hypertension Denies:: Cancer, Diabetes Mellitus Type 1, Diabetes Mellitus Type 2, Internal Pacemaker, MRSA, Seizures *Have you ever received a pneumonia vaccine?: No *Have you received a flu vaccine this season?: No Other Medical History: Reports: Arthritis. Denies: Blood Transfusion Reaction Anesthesia experience/problems:: None Laterality Cases: Left: Arthroscopy Knee, Right: Arthroscopy Shoulder Other Surgeries: No: Pacemaker Amputation: No Fractures: No - *Social History Last grade of school completed: 11th or 12th Smoking Status: Current every day smoker Tobacco Type: smokeless tobacco Alcohol Intake: current Alcohol Intake Frequency:: 3 or more drinks per day Substance Use Type: other *Occupational Status:: employed Housing: house Household Members: spouse *Travel in the last 8 weeks: None Family Hx:: Cancer
[2021-10-01 09:08] VITALS: O2SAT 97
--- NOTE | 2021-10-01 09:59 | P.PCN_ITS ---
- Procedure: Date: 10/01/21 Patient Date of :: 1970 Procedure Performed:: Colonoscopy with polypectomy Indications:: Screening Performing Provider:: Bro Ordonez MD Referring Provider:: . Sedation:: Monitored anesthesia care Procedure:: After informed consent was obtained the patient was taken to the endoscopy suite. Sedation ensued after the patient was transferred to the left lateral decubitus position. Pulse, blood pressure, and oxygen saturation were monitored throughout the procedure. Digital rectal exam revealed no significant ab normality. The colonoscope was placed in position. The entire colon was evaluated. The colonoscope was carefully removed and the patient was transferred to recovery in stable condition. Please see findings and specimens below for detail. Findings:: Bowel preparation moderate to poor Mild scattered sigmoid diverticulosis Fairly significant lack of relaxation Submucosal lipoma at 45 cm Polyps (see specimens) Specimens:: Hepatic flexure polyp (cold biopsy forceps) Polyp at 55 cm (cold snare) Polyp at 50 cm (cold snare) Biopsy of submucosal lipoma at 45 cm Recommendations:: Timing of repeat colonoscopy is pending pathology but will likely be between 2-3 years secondary to [id number] preparation and lack of relaxation. Complications:: No immediate Estimated blood obtained (mL): 1
[2021-10-01 10:00] VITALS: BP 132/81; PULSE 86; RESP 12; TEMP 36.6; O2SAT 99
--- NOTE | 2021-10-01 10:09 | PC.NURSE ---
oral airway noted, pt airway patent.
[2021-10-01 10:10] VITALS: BP 111/78; PULSE 81; RESP 16; O2SAT 96
--- NOTE | 2021-10-01 10:10 | PC.NURSE ---
Oral airway removed, airway remains patent.
[2021-10-01 10:20] VITALS: BP 130/88; PULSE 75; RESP 16; O2SAT 98
[2021-10-01 10:30] VITALS: BP 133/91; PULSE 75; RESP 16; TEMP 36.6; O2SAT 98
== END 2021-10-01 10:33 | disposition home or self-care (01) ==
PROVIDERS: PCP Nurse Practitioner Family; Visit Provider Surgery
PROC: 0DJD8ZZ Inspection of Lower Intestinal Tract, Via Natural or Artificial Opening Endoscopic (ICD-10-PCS; CPT 45385; principal; 2021-10-01 09:30)
DX: Z12.11 Encounter for screening for malignant neoplasm of colon (principal); K57.32 Diverticulitis of large intestine without perforation or abscess without bleeding; K63.5 Polyp of colon; D17.79 Benign lipomatous neoplasm of other sites; K21.9 Gastro-esophageal reflux disease without esophagitis; E78.5 Hyperlipidemia, unspecified; I10 Essential (primary) hypertension; M19.90 Unspecified osteoarthritis, unspecified site; Z72.0 Tobacco use; Z80.9 Family history of malignant neoplasm, unspecified; Z88.8 Allergy status to other drugs, medicaments and biological substances; Z79.899 Other long term (current) drug therapy
CPT/HCPCS: 45385; 45380

== ENCOUNTER 2024-06-15 07:30 | Observation (INO) | payer BC, SELFPAY ==
[2024-06-15] VITALS (17 sets, daily range): BP systolic 133–213; BP diastolic 81–114; PULSE 76–101; RESP 16–20; TEMP 36.7–37.7; O2SAT 93–98; BMI 38.8; BMI 37.9
--- NOTE | 2024-06-15 07:32 | ED_ITS ---
Discharge Plan Disposition Patient Disposition: Admitted Clinical Impressions Clinical Impression: Abscess Discharge ED Provider: Ga Anderson Adult HPI General Chief complaint: PAIN Stated complaint: severe rectum pain Time Seen by Provider: 06/15/24 07:31 History of Present Illness HPI narrative: The patient presents with a chief complaint of significant pain in the lower back area, which has been ongoing since Thursday. Initially, the patient noticed soreness, and by Thursday, there was no visible issue according to his . However, he later experienced sweating on the left side and felt a spot in the same area, though there has been no drainage. The patient has been taking ciprofloxacin 500 mg and Flomax, which were prescribed under the assumption of a prostate issue, possibly prostatitis. There is no mention of fever, but he reports feeling very hot. The patient denies any history of similar issues, except for a possible flare-up 10 to 15 years ago that resolved on its own. Additionally, the patient's initially thought it might be a prostate issue when she couldn't see anything visibly wrong. The patient mentions feeling sore in the affected area and confirms that he can feel a spot in the area of concern. When asked about fever, he reports feeling very hot but doesn't mention taking his temperature. The patient denies having any medical conditions such as diabetes when specifically asked. Please note that above description of symptoms, in this electronic medical record under categorization of recalled from ER triage doctor by RN are reflective of an initial nursing assessment, however, is not reflective of my full history and physical exam that was personally taken and clarified. Consequentially, this preceding description of symptoms, which may include the patient's categorized chief complaint in the EMR, do not reflect my personal clinical impression, and the ultimate description of history of present illness and patient stated complaints should be deferred to this section of the note. Unless stated otherwise or congruent with this section of the note, additional signs, symptoms, or incongruence should be interpreted as inaccurate with my clinical impression. Related Data Home Medications ?Medication ?Instructions ?Recorded ?Confirmed amlodipine 10 mg tablet 10 mg PO DAILY 08/09/20 06/15/24 rosuvastatin 20 mg tablet 20 mg PO DAILY 08/09/20 06/15/24 tamsulosin 0.4 mg capsule 0.4 mg PO DAILY 06/15/24 06/15/24 testosterone cypionate 200 mg/mL 200 mg IM Q14D 06/15/24 06/15/24 intramuscular oil Allergies Allergy/AdvReac Type Severity Reaction Status Date / Time lisinopril Allergy Mild Verified 10/18/21 09:07 [facility] Disclaimer: The information contained in this section may have been updated after the patient was seen, as this information can be updated by other users. Medical History (Updated 06/15/24 @ 14:14 by Dolores Hardy RN) Injury of right rotator cuff HLD (hyperlipidemia) HTN (hypertension) Surgical History (Updated 06/15/24 @ 11:33 by Hanny Mills RN) S/P left knee arthroscopy S/P colon polypectomy Family History (Updated 06/15/24 @ 11:33 by Hanny Mills RN) Other Cancer Social History (Updated 06/15/24 @ 11:32 by Hanny Mills RN) Smoking Status: Never smoker alcohol intake: current alcohol intake frequency: a few times a week substance use type: other current occupational status: employed Travel in the last 8 weeks: None household members: spouse housing: house current occupation: [employer] caffeine: Yes Other Medical History Have you received the Flu Vaccine for this season: No Have you received the Pneumonia Vaccine: No ROS Obtained: Yes other As per HPI Physical Exam General General appearance: alert and in no apparent distress Head Head exam: atraumatic and normocephalic Eye Eye exam: Present normal appearance Neck Neck exam: Present normal inspection Chest Chest inspection: Present normal inspection and symmetric chest wall rise Respiratory Respiratory exam: Present normal lung sounds bilaterally; Absent respiratory distress Cardiovascular Cardiovascular exam: Present regular rate and normal rhythm Abdominal Exam Abdominal exam: Present soft Neurological Exam Neurological exam: Present alert and oriented X3 Psychiatric Psychiatric exam: Present normal affect and normal mood Skin Skin exam: Present warm and dry Other Other exam information: Tenderness to palpation and erythema at 9 o'clock position on supervised rectal exam Medical Decision Making Medical Records Medical records reviewed: Yes I reviewed the patient's medical records. Screening: Per USPSTF and CDC recommendations, given the prevalence of disease in our region, it is our hospital?s policy to screen for HIV and viral Hepatitis for all patients aged 18 and over and those with ongoing risk factors. Evin Inquiry Pt receiving controlled substance: No Vital Signs: 06/15/24 07:31 06/15/24 07:36 06/15/24 08:08 Temperature 98.9 F Temperature Source Oral Pulse Rate 100 H 77 Pulse Rate [Right] 101 H Respiratory Rate 20 Blood Pressure 213/114 H 136/87 Blood Pressure [Right Arm] 213/114 H Blood Pressure Mean 147 103 Blood Pressure Mean [Right Arm] 147 Blood Pressure Source [Right Arm] Automatic Cuff 02 Sat by Pulse Oximetry 95 93 L 98 Oxygen Delivery Method Room Air Room Air Room Air 06/15/24 08:56 06/15/24 09:00 06/15/24 09:15 Temperature Temperature Source Pulse Rate 84 90 81 Pulse Rate [Right] Respiratory Rate Blood Pressure 145/87 H 136/85 133/88 Blood Pressure [Right Arm] Blood Pressure Mean 97 Blood Pressure Mean [Right Arm] Blood Pressure Source [Right Arm] 02 Sat by Pulse Oximetry 93 L 94 L 96 Oxygen Delivery Method Room Air 06/15/24 09:30 06/15/24 09:45 06/15/24 10:00 Temperature Temperature Source Pulse Rate 85 84 83 Pulse Rate [Right] Respiratory Rate Blood Pressure 149/91 H 154/93 H 140/93 H Blood Pressure [Right Arm] Blood Pressure Mean 108 Blood Pressure Mean [Right Arm] Blood Pressure Source [Right Arm] 02 Sat by Pulse Oximetry 96 96 95 Oxygen Delivery Method Room Air 06/15/24 10:15 06/15/24 10:30 06/15/24 10:45 Temperature Temperature Source Pulse Rate 79 86 86 Pulse Rate [Right] Respiratory Rate Blood Pressure 142/94 H 138/102 H 148/95 H Blood Pressure [Right Arm] Blood Pressure Mean 105 111 112 Blood Pressure Mean [Right Arm] Blood Pressure Source [Right Arm] 02 Sat by Pulse Oximetry 95 95 96 Oxygen Delivery Method Room Air Room Air Room Air 06/15/24 11:00 06/15/24 11:10 Temperature 98.2 F Temperature Source Pulse Rate 82 79 Pulse Rate [Right] Respiratory Rate 18 Blood Pressure 142/100 H 141/84 H Blood Pressure [Right Arm] Blood Pressure Mean 111 Blood Pressure Mean [Right Arm] Blood Pressure Source [Right Arm] 02 Sat by Pulse Oximetry 97 Oxygen Delivery Method Room Air Room Air Lab Data Lab Results 06/15/24 07:43: WBC 13.2 H, RBC 5.94, Hgb 18.3 H, Hct 54.1 H, MCV 91.1, MCH 30.6, MCHC 33.6, RDW 13.8, Plt Count 174, MPV 7.6, Neut % (Auto) 83.0 H, Lymph % (Auto) 10.7, [place] % (Auto) 4.9, Eos % (Auto) 1.0, Baso % (Auto) 0.4, Neut # (Auto) 11.0 H, Lymph # (Auto) 1.4, [place] # (Auto) 0.7, Eos # (Auto) 0.1, Baso # (Auto) 0.1, Sodium 139, Potassium 3.8, Chloride 101, Carbon Dioxide 27, Anion Gap 14.8, BUN 11, Creatinine 1.00, Estimated Creat Clear 144, Estimated GFR 78, Est GFR ( Amer) 95, Glucose 176 H, Calcium 9.1, Total Bilirubin 1.0, AST 25, ALT 30, Alkaline Phosphatase 76, Total Protein 7.1, Albumin 4.2, Globulin 2.9, Albumin/Globulin Ratio 1.4, HIV 1&2 Antibody Rapid Nonreactive 06/15/24 10:55: Urine Color Yellow, Urine Appearance Clear, Urine pH 6.5, Ur Specific [place] 1.015, Urine Protein Negative, Urine Glucose (UA) 1+, Urine Ketones Negative, Urine Blood Negative, Urine Nitrate Negative, Urine Bilirubin Negative, Urine Urobilinogen 0.2, Ur Leukocyte Esterase Negative, Urine RBC Occasional, Urine WBC None, Ur Squamous Epith Cells Occasional, Urine Bacteria Trace 06/15/24 07:43 06/15/24 07:43 Orders (Tests/Meds): ED MEDICATIONS Generic Name Dose Route Start Last Admin Trade Name Freq PRN Reason Stop Dose Admin Piperacillin Sod/Tazobactam 50 mls @ 100 mls/hr 06/15/24 11:15 06/15/24 12:05 Sod 3.375 gm/ Sodium Chloride IV 06/25/24 11:14 100 mls/hr Q6H CARMEN Administration Discontinued Medications Generic Name Dose Route Start Last Admin Trade Name Freq PRN Reason Stop Dose Admin Hydromorphone HCl 1 mg 06/15/24 11:01 06/15/24 11:13 Hydromorphone 2mg/Ml Syringe IV 06/15/24 11:02 1 mg ONCE ONE Administration Iopamidol 75 ml 06/15/24 08:47 06/15/24 08:48 Iopamidol-370 (76%);100ml Bottle IV 06/15/24 08:48 75 ml ONCE ONE Administration Morphine Sulfate 4 mg 06/15/24 07:47 06/15/24 07:49 Morphine 4mg/Ml Syringe IV 06/15/24 07:48 4 mg ONCE ONE Administration Morphine Sulfate 4 mg 06/15/24 09:31 06/15/24 09:47 Morphine 4mg/Ml Syringe IV 06/15/24 09:32 4 mg ONCE ONE Administration Ondansetron HCl 4 mg 06/15/24 07:47 06/15/24 07:49 Ondansetron 4mg/2ml Vial IV 06/15/24 07:48 4 mg ONCE ONE Administration Sodium Chloride 10 ml 06/15/24 08:47 06/15/24 08:48 Sodium Chloride 0.9% 10ml Syr (Rad Only) IV 06/15/24 08:48 10 ml ONCE ONE Administration ORDERS Category Date Time Status CT abdomen pelvis w con Stat Cat Scan 06/15/24 07:56 Completed CBC w/Auto Diff [Complete Blood Count Auto Diff] Stat Lab 06/15/24 07:43 Completed CMP [Comprehensive Metabolic Panel] Stat Lab 06/15/24 07:43 Completed CRP [C-Reactive Protein] AMLAB Lab 06/16/24 06:00 Ordered Complete Blood Count Auto Diff AMLAB Lab 06/16/24 06:00 Ordered Comprehensive Metabolic Panel AMLAB Lab 06/16/24 06:00 Ordered HIV (1&2) Antibody Rapid Stat Lab 06/15/24 07:43 Completed Hep C Ab with Reflex to RNA Stat Lab 06/15/24 07:43 Received Magnesium AMLAB Lab 06/16/24 06:00 Ordered Urinalysis and Microscopic Stat Lab 06/15/24 10:55 Completed Urine Culture Stat Micro 06/15/24 10:55 Received Medical Decision Narrative: Patient with history and exam per above presenting for evaluation of rectal pain Diagnoses considered include perianal abscess, perirectal abscess, among others ED workup and treatment included: ED MEDICATIONS Generic Name Dose Route Start Last Admin Trade Name Freq PRN Reason Stop Dose Admin Piperacillin Sod/Tazobactam 50 mls @ 100 mls/hr 06/15/24 11:15 06/15/24 12:05 Sod 3.375 gm/ Sodium Chloride IV 06/25/24 11:14 100 mls/hr Q6H CARMEN Administration Discontinued Medications Generic Name Dose Route Start Last Admin Trade Name Vitor PRN Reason Stop Dose Admin Hydromorphone HCl 1 mg 06/15/24 11:01 06/15/24 11:13 Hydromorphone 2mg/Ml Syringe IV 06/15/24 11:02 1 mg ONCE ONE Administration Iopamidol 75 ml 06/15/24 08:47 06/15/24 08:48 Iopamidol-370 (76%);100ml Bottle IV 06/15/24 08:48 75 ml ONCE ONE Administration Morphine Sulfate 4 mg 06/15/24 07:47 06/15/24 07:49 Morphine 4mg/Ml Syringe IV 06/15/24 07:48 4 mg ONCE ONE Administration Morphine Sulfate 4 mg 06/15/24 09:31 06/15/24 09:47 Morphine 4mg/Ml Syringe IV 06/15/24 09:32 4 mg ONCE ONE Administration Ondansetron HCl 4 mg 06/15/24 07:47 06/15/24 07:49 Ondansetron 4mg/2ml Vial IV 06/15/24 07:48 4 mg ONCE ONE Administration Sodium Chloride 10 ml 06/15/24 08:47 06/15/24 08:48 Sodium Chloride 0.9% 10ml Syr (Rad Only) IV 06/15/24 08:48 10 ml ONCE ONE Administration ORDERS Category Date Time Status CT abdomen pelvis w con Stat Cat Scan 06/15/24 07:56 Completed CBC w/Auto Diff [Complete Blood Count Auto Diff] Stat Lab 06/15/24 07:43 Completed CMP [Comprehensive Metabolic Panel] Stat Lab 06/15/24 07:43 Completed CRP [C-Reactive Protein] AMLAB Lab 06/16/24 06:00 Ordered Complete Blood Count Auto Diff AMLAB Lab 06/16/24 06:00 Ordered Comprehensive Metabolic Panel AMLAB Lab 06/16/24 06:00 Ordered HIV (1&2) Antibody Rapid Stat Lab 06/15/24 07:43 Received Hep C Ab with Reflex to RNA Stat Lab 06/15/24 07:43 Received Magnesium AMLAB Lab 06/16/24 06:00 Ordered Urinalysis and Microscopic Stat Lab 06/15/24 10:55 Completed Urine Culture Stat Micro 06/15/24 10:55 Received Labs were independently interpreted by me, significant for leukocytosis to 13.2 Imaging was independently visualized and interpreted by me, significant for 3 x 3 x 3.5 cm anorectal abscess Please refer to radiology report for full details. I discussed the case with general surgeon and hospitalist. Patient will benefit from mission for further management. He was accepted for admission by hospitalist. Critical Care Critical Care Time Critical Care Time: No
[2024-06-15] MEDS: ONDANSETRON 4MG/2ML VIAL 4 MG IV (07:49)
[2024-06-15] MEDS: MORPHINE 4MG/ML SYRINGE 4 MG IV ×2 (07:49→09:47)
--- NOTE | 2024-06-15 07:56 | CT_ITS ---
FINAL REPORT TECHNIQUE: After the administration of intravenous contrast, axial images were obtained through the abdomen and pelvis by computed tomography. The study was performed with techniques to keep radiation dose as low as reasonably achievable, (ALARA). Individual dose reduction techniques using automated exposure control or adjustment of mA and/or kV according to the patient's size were employed. CLINICAL HISTORY: perianal area of fluctuance, 9:00 position COMPARISON: None FINDINGS: Abdomen: The lung bases are clear. There is mild fatty infiltration of the liver. There are multiple gallstones in the dependent portion of the gallbladder. The spleen, pancreas, adrenals and kidneys appear unremarkable. The aorta is normal in caliber. There is no free fluid or adenopathy. Pelvis: The appendix is normal in appearance. The urinary bladder is not distended. There is no free fluid or adenopathy. There is abnormal mucosa of the inferior rectum extending to the anal verge. There is a 3.5 x 3.3 cm fluid collection, lateral to the left and posterior to the anal region, consistent with an abscess. This is best seen on images #129 through 134 of series 2. IMPRESSION: 3.5 x 3.3 cm fluid collection lateral and posterior to the anal region, consistent with an abscess. Multiple gallstones are present in the dependent portion of the gallbladder. Reviewed, Interpreted and Dictated by Eb Ramos MD Transcribed by Nicole Issa Authenticated and [facility]
[2024-06-15 08:06] LABS: Chloride 101 mmol/L (98-107)
[2024-06-15 08:09] LABS: Alanine Aminotransferase 30 U/L (12-78); Albumin Level 4.2 g/dl (3.5-5.0); Albumin/Globulin Ratio 1.4 (1.1-1.8); Alkaline Phosphatase 76 U/L (38-126); Anion Gap 14.8 mEq/L (5-15); Aspartate Amino Transferase 25 U/L (17-59); Blood Urea Nitrogen 11 mg/dl (9-20); Calcium 9.1 mg/dl (8.4-10.2); Carbon Dioxide 27 mmol/L (22.0-30.0); Creatinine Clearance Estimated 144 mL/min (50-200); Estimated Glomerular Filt Rate 78 ml/min (>60); GFR (African American) 95 ML/MIN (>60); Globulin 2.9 g/dL (1.3-3.2); Glucose 176 mg/dl (74-100); Potassium 3.8 mmoL/L (3.5-5.1); Sodium 139 mmol/L (136-145); Total Protein,Serum 7.1 g/dl (6.3-8.2)
[2024-06-15 08:12] LABS: Basophils # 0.1 K/mm3 (0-0.2); Basophils % 0.4 % (0.1-2.0); Eosinophils # 0.1 K/mm3 (0.0-0.4); Hematocrit 54.1 % (42.0-52.0); Lymphocytes # 1.4 K/mm3 (0.7-4.5); Lymphocytes % 10.7 % (10-50); Mean Corpuscular HGB Conc 33.6 g/dL (31.8-35.4); Mean Corpuscular Hemoglobin 30.6 pg (27.0-31.2); Mean Corpuscular Volume 91.1 fl (80-94); Mean Platelet Volume 7.6 fl (7.4-10.4); Monocytes # 0.7 K/mm3 (0.1-1.0); Monocytes % 4.9 % (1.7-9.3); Platelet Count 174 K/mm3 (142-424); Red Blood Count 5.94 M/mm3 (4.60-6.20); Red Cell Distribution Width 13.8 % (11.5-17.5); White Blood Count 13.2 K/mm3 (4.8-10.8)
--- NOTE | 2024-06-15 08:28 | PC.NURSE ---
I rounded on the pt to ask if he could give us a urine sample, he states he will try.
--- NOTE | 2024-06-15 08:31 | PC.NURSE ---
patient gone to CT at this time.
--- NOTE | 2024-06-15 08:43 | PC.NURSE ---
patient back in room at this time.
[2024-06-15] MEDS: IOPAMIDOL-370 (76%);100ML BOTTLE 75 ML IV (08:48)
[2024-06-15] MEDS: SODIUM CHLORIDE 0.9% 10ML SYR (RAD ONLY) 10 ML IV (08:48)
[2024-06-15 08:51] LABS: Hemoglobin 18.3 g/dL (14.1-18.0)
--- NOTE | 2024-06-15 10:43 | PC.NURSE ---
Called for on-call general surgery, Dr. Ordonez, and s/w electrician office DIVYA. She will have Dr. Ordonez call Dr. Anderson back shortly.
--- NOTE | 2024-06-15 10:48 | PC.NURSE ---
Dr. Anderson s/w Dr. Ordonez
--- NOTE | 2024-06-15 10:58 | PC.NURSE ---
Dr. Anderson s/w Dr. Dr Kohli for possible admission
[2024-06-15 11:02] LABS: Appearance,Urine CLEAR (Clear); Bilirubin,Urine Negative (Negative); Blood, Urine Negative (Negative); Color,Urine YELLOW (Yellow); Glucose,Urine (UA) 1+ (Negative); Ketones,Urine Negative (Negative); Leukocyte Esterase,Urine Negative (Negative); Microscopic, Urine URINE MICROSCOPIC (MICROSCOPIC); Nitrate,Urine Negative (Negative); PH,Urine 6.5 (5.0-8.5); Protein,Urine Negative (Negative); Specific Gravity, Urine 1.015 (1.005-1.030); Urobilinogen,Urine 0.2 EU/dl (0.2)
--- NOTE | 2024-06-15 11:03 | P.HP_ITS ---
History of Present Illness *Admission Date: 06/15/24 *Reason for visit:: perianal pain *History of present illness: Mr. Talbert is a 53-year-old male with history of hypertension and obesity. Presented to the ER with complaint of significant pain in perianal area. Pain has been going on for at least the past 5 days. Noticed some soreness around his bottom and saw his PCP on Thursday. Concern for prostatitis since they initiated him on ciprofloxacin. Symptoms have only worsened. Occasional chills and feeling feverish. Denies any nausea or vomiting. Has had significant pain with defecation. No history of hemorrhoids. On evaluation in the ER, found to have white count of 13. Imaging of abdomen and pelvis with perianal abscess. Medicine consulted for admission and further management. Surgery consulted for debridement. On evaluation after arrival to the floor, patient states that it expressed itself somewhat on Thursday. [place] fluid around his bottom. Pain is only gotten worse over the past several days. Hurts to sit. Denies any history of diabetes or kidney dysfunction. [facility] Disclaimer: The information contained in this section may have been updated after the patient was seen, as this information can be updated by other users. Medical History (Updated 06/15/24 @ 18:38 by Robert Kohli MD) Injury of right rotator cuff HLD (hyperlipidemia) HTN (hypertension) Surgical History (Updated 06/15/24 @ 11:33 by Hanny Mills RN) S/P left knee arthroscopy S/P colon polypectomy Family History (Updated 06/15/24 @ 11:33 by Hanny Mills RN) Other Cancer Social History (Updated 06/15/24 @ 11:32 by Hanny Mills RN) Smoking Status: Never smoker alcohol intake: current alcohol intake frequency: a few times a week substance use type: other current occupational status: employed Travel in the last 8 weeks: None household members: spouse housing: house current occupation: [employer] [place] caffeine: Yes Other Medical History Have you received the Flu Vaccine for this season: No Have you received the Pneumonia Vaccine: No Review of Systems Review of Systems Review of systems (narrative): 14 point review of systems performed, pertinent positives and negatives as per HPI Meds Home Medications and Allergies Home Medications ?Medication ?Instructions ?Recorded ?Confirmed ?Type amlodipine 10 mg tablet 10 mg PO DAILY 08/09/20 06/15/24 History rosuvastatin 20 mg tablet 20 mg PO DAILY 08/09/20 06/15/24 History tamsulosin 0.4 mg capsule 0.4 mg PO DAILY 06/15/24 06/15/24 History testosterone cypionate 200 mg/mL 200 mg IM Q14D 06/15/24 06/15/24 History intramuscular oil New Prescriptions to Start Prescriptions: Allergies Allergy/AdvReac Type Severity Reaction Status Date / Time lisinopril Allergy Mild Verified 10/18/21 09:07 Exam Data for Last 24 hours Vital signs and Labs for Last 24 Hours: Temp Pulse Resp BP Pulse Ox O2 Del Method 98.9 F 84 20 154/93 H 96 Room Air 06/15/24 07:31 06/15/24 09:45 06/15/24 07:31 06/15/24 09:45 06/15/24 09:45 06/15/24 08:56 Laboratory Results - last 24 hr 06/15/24 07:43: WBC 13.2 H, RBC 5.94, Hgb 18.3 H, Hct 54.1 H, MCV 91.1, MCH 30.6, MCHC 33.6, RDW 13.8, Plt Count 174, MPV 7.6, Neut % (Auto) 83.0 H, Lymph % (Auto) 10.7, [place] % (Auto) 4.9, Eos % (Auto) 1.0, Baso % (Auto) 0.4, Neut # (Auto) 11.0 H, Lymph # (Auto) 1.4, [place] # (Auto) 0.7, Eos # (Auto) 0.1, Baso # (Auto) 0.1, Sodium 139, Potassium 3.8, Chloride 101, Carbon Dioxide 27, Anion Gap 14.8, BUN 11, Creatinine 1.00, Estimated Creat Clear 144, Estimated GFR 78, Est GFR ( Amer) 95, Glucose 176 H, Calcium 9.1, Total Bilirubin 1.0, AST 25, ALT 30, Alkaline Phosphatase 76, Total Protein 7.1, Albumin 4.2, Globulin 2.9, Albumin/Globulin Ratio 1.4 I & O for Last 24 hours: Intake & Output 06/12/24 06/13/24 06/14/24 06/15/24 23:59 23:59 23:59 23:59 Weight 119.295 kg Constitutional Constitutional: no acute distress, obese and cooperative *Routine HEENT Exam Head: Present normocephalic Eye: Present EOMI and PERRL ENT: Present mucous membranes moist *Routine Neck Exam Neck: Present supple; Absent lymphadenopathy *Routine Respiratory Exam Respiratory: Present CTA bilaterally; Absent respiratory distress, rhonchi, wheezes or crackles *Routine Cardiovascular Exam Cardiovascular: Present RRR *Routine Abdominal Exam Abdominal: Present soft and normoactive bowel sounds; Absent tenderness *Routine Rectal Exam Rectal:: no tenderness Comments:: Tender to palpation over right gluteus. Lesion noted at 6:00 Location to anus *Routine Genitalia Exam Genitalia:: deferred *Routine Extremities Exam Extremities: Absent cyanosis, clubbing or edema *Routine Skin Exam Skin: Present warm; Absent rash *Routine Neurological Exam Neurological: Present alert, oriented X3 and moving all extremities; Absent altered mental status Assessment and Plan *Assessment and plan (1) Sepsis: Status: Acute Category: Medical Code(s): A41.9 - Sepsis, unspecified organism (2) Perianal abscess: Status: Acute Category: Medical Code(s): K61.0 - Anal abscess (3) HTN (hypertension): Status: Acute Category: Medical Code(s): I10 - Essential (primary) hypertension (4) Class 2 obesity: Status: Chronic Category: Medical Code(s): E66.812 - Obesity, class 2 Plan 53-year-old male who presents with worsening pain in his bottom. Workup in the ER concerning for leukocytosis with CT showing and a rectal abscess. Discussed case with ER physician, request admission for further management. I agreed to admit for further management. On presentation, initially tachycardic with heart rate of 100. Afebrile. White count elevated at 13. Meeting sepsis criteria with infection/abscess and vital instability. Initial broad-spectrum antibiotics with Zosyn IV. Surgery consulted to assist with care. Problems addressed as follows: Sepsis Perianal abscess -Continue Zosyn 3.375 g every 6 hours -White count elevated at 13, kidney function normal with BUN 11, creatinine 1.0. - Urine reviewed and normal. No signs of infection. - CT personally reviewed showing 3 x 3 fluid collection lateral and posterior to the anus. Consistent with abscess -N.p.o. at midnight for surgical debridement. Discussed case with surgery, will proceed with source control tomorrow with I&D. -Holding on vancomycin, no history of MRSA. -Continue Dilaudid 1 mg every 4 hours as needed for severe breakthrough pain, monitor for toxicity -Repeat CBC, CMP, magnesium ordered for the morning Continue tamsulosin 0.4 mg nightly for BPH Continue amlodipine 10 mg daily for hypertension Hold statin and testosterone in the acute setting Obesity complicates all aspects of his care Full code NPO after midnight. Holding anticoagulation pending surgery/debridement
[2024-06-15 11:07] LABS: Bacteria,Urine Trace /lpf; RBC,Urine Occasional #/hpf (0-3); Squamous Epithelial Cell,Urine Occasional #/hpf (0-5)
[2024-06-15] MEDS: HYDROMORPHONE 2MG/ML SYRINGE 1 MG IV ×2 (11:13→17:38)
--- NOTE | 2024-06-15 11:18 | PC.NURSE ---
ER staff has called 2x attempting to give report with no answer from med/surg staff. WC & Charge state they will have nurse call back.
--- NOTE | 2024-06-15 11:23 | PC.NURSE ---
called report to jimi garcia on and answered all questions
[2024-06-15] MEDS: PIPERCILLIN/TAZO 3.375 GM in 0.9 % SODIUM CHLORIDE 50 ML IV ×3 (12:05→22:31)
--- NOTE | 2024-06-15 12:11 | HMH.PHAINT1 ---
Pharmacy Intervention Comments: HOME MEDICATIONS VERIFIED VIA OUTPATIENT PHARMACY AND PATIENT INTERVIEW
--- NOTE | 2024-06-15 12:15 | PC.NURSE ---
pt arrived to the floor via stretcher @[id number]
[2024-06-15 13:06] LABS: HIV (1&2) Antibody Rapid NONREACTIVE (NONREACTIVE)
--- NOTE | 2024-06-15 14:40 | P.CONS_ITS ---
History of Present Illness *Admission Date: 06/15/24 *Reason for visit:: Perianal/perirectal abscess *History of present illness: This is a 53-year-old gentleman seen in consultation after presenting to the emergency department with increasing lower back pain. Evaluation included a CT scan which revealed changes consistent with perianal/perirectal abscess and the surgical service was consulted. Forwarded from emergency department evaluation: HPI narrative: The patient presents with a chief complaint of significant pain in the lower back area, which has been ongoing since Thursday. Initially, the patient noticed soreness, and by Thursday, there was no visible issue according to his . However, he later experienced sweating on the left side and felt a spot in the same area, though there has been no drainage. The patient has been taking ciprofloxacin 500 mg and Flomax, which were prescribed under the assumption of a prostate issue, possibly prostatitis. There is no mention of fever, but he reports feeling very hot. The patient denies any history of similar issues, except for a possible flare-up 10 to 15 years ago that resolved on its own. Additionally, the patient's initially thought it might be a prostate issue when she couldn't see anything visibly wrong. The patient mentions feeling sore in the affected area and confirms that he can feel a spot in the area of concern. When asked about fever, he reports feeling very hot but doesn't mention taking his temperature. The patient denies having any medical conditions such as diabetes when specifically asked. CT scan A/P - IMPRESSION: 3.5 x 3.3 cm fluid collection lateral and posterior to the anal region, consistent with an abscess. Multiple gallstones arepresent in the dependent portion of the gallbladder. [facility] Disclaimer: The information contained in this section may have been updated after the patient was seen, as this information can be updated by other users. Medical History (Updated 06/15/24 @ 14:14 by Dolores Hardy RN) Injury of right rotator cuff HLD (hyperlipidemia) HTN (hypertension) Surgical History (Updated 06/15/24 @ 11:33 by Hanny Mills, RN) S/P left knee arthroscopy S/P colon polypectomy Family History (Updated 06/15/24 @ 11:33 by Hanny Mills, RN) Cancer Social History (Updated 06/15/24 @ 11:32 by Hanny Mills, RN) Smoking Status: Never smoker alcohol intake: current alcohol intake frequency: a few times a week substance use type: other current occupational status: employed Travel in the last 8 weeks: None household members: spouse housing: house current occupation: [employer] district caffeine: Yes Meds Home Medications and Allergies Home Medications ?Medication ?Instructions ?Recorded ?Confirmed ?Type amlodipine 10 mg tablet 10 mg PO DAILY 08/09/20 06/15/24 History rosuvastatin 20 mg tablet 20 mg PO DAILY 08/09/20 06/15/24 History tamsulosin 0.4 mg capsule 0.4 mg PO DAILY 06/15/24 06/15/24 History testosterone cypionate 200 mg/mL 200 mg IM Q14D 06/15/24 06/15/24 History intramuscular oil New Prescriptions to Start Prescriptions: Allergies Allergy/AdvReac Type Severity Reaction Status Date / Time lisinopril Allergy Mild Verified 10/18/21 09:07 Exam (Inpt) Vital signs and Labs for Last 24 Hours: Temp Pulse Resp BP Pulse Ox O2 Del Method 98.1 F 81 18 135/81 95 Room Air 06/15/24 12:15 06/15/24 12:15 06/15/24 12:15 06/15/24 12:15 06/15/24 12:15 06/15/24 13:00 Laboratory Results - last 24 hr 06/15/24 07:43: WBC 13.2 H, RBC 5.94, Hgb 18.3 H, Hct 54.1 H, MCV 91.1, MCH 30.6, MCHC 33.6, RDW 13.8, Plt Count 174, MPV 7.6, Neut % (Auto) 83.0 H, Lymph % (Auto) 10.7, [place] % (Auto) 4.9, Eos % (Auto) 1.0, Baso % (Auto) 0.4, Neut # (Auto) 11.0 H, Lymph # (Auto) 1.4, [place] # (Auto) 0.7, Eos # (Auto) 0.1, Baso # (Auto) 0.1, Sodium 139, Potassium 3.8, Chloride 101, Carbon Dioxide 27, Anion Gap 14.8, BUN 11, Creatinine 1.00, Estimated Creat Clear 144, Estimated GFR 78, Est GFR ( Amer) 95, Glucose 176 H, Calcium 9.1, Total Bilirubin 1.0, AST 25, ALT 30, Alkaline Phosphatase 76, Total Protein 7.1, Albumin 4.2, Globulin 2.9, Albumin/Globulin Ratio 1.4, HIV 1&2 Antibody Rapid Nonreactive 06/15/24 10:55: Urine Color Yellow, Urine Appearance Clear, Urine pH 6.5, Ur Specific [place] 1.015, Urine Protein Negative, Urine Glucose (UA) 1+, Urine Ketones Negative, Urine Blood Negative, Urine Nitrate Negative, Urine Bilirubin Negative, Urine Urobilinogen 0.2, Ur Leukocyte Esterase Negative, Urine RBC Occasional, Urine WBC None, Ur Squamous Epith Cells Occasional, Urine Bacteria Trace I & O for Labs for Last 24 Hours: Intake & Output 06/13/24 06/14/24 06/15/24 06/16/24 11:59 11:59 11:59 11:59 Weight 263 lb 256 lb 4.986 oz Constitutional: no acute distress Respiratory: Absent respiratory distress Cardiac: Absent Tachycardia GI: Present soft Comments:: No spreading cellulitis. Digital exam deferred secondary to pain/tenderness. Results Labs 06/15/24 07:43 06/15/24 07:43 Labs: Laboratory Results - last 24 hr 06/15/24 07:43: WBC 13.2 H, RBC 5.94, Hgb 18.3 H, Hct 54.1 H, MCV 91.1, MCH 30.6, MCHC 33.6, RDW 13.8, Plt Count 174, MPV 7.6, Neut % (Auto) 83.0 H, Lymph % (Auto) 10.7, [place] % (Auto) 4.9, Eos % (Auto) 1.0, Baso % (Auto) 0.4, Neut # (Auto) 11.0 H, Lymph # (Auto) 1.4, [place] # (Auto) 0.7, Eos # (Auto) 0.1, Baso # (Auto) 0.1, Sodium 139, Potassium 3.8, Chloride 101, Carbon Dioxide 27, Anion Gap 14.8, BUN 11, Creatinine 1.00, Estimated Creat Clear 144, Estimated GFR 78, Est GFR ( Amer) 95, Glucose 176 H, Calcium 9.1, Total Bilirubin 1.0, AST 25, ALT 30, Alkaline Phosphatase 76, Total Protein 7.1, Albumin 4.2, Globulin 2.9, Albumin/Globulin Ratio 1.4, HIV 1&2 Antibody Rapid Nonreactive 06/15/24 10:55: Urine Color Yellow, Urine Appearance Clear, Urine pH 6.5, Ur Specific [place] 1.015, Urine Protein Negative, Urine Glucose (UA) 1+, Urine Ketones Negative, Urine Blood Negative, Urine Nitrate Negative, Urine Bilirubin Negative, Urine Urobilinogen 0.2, Ur Leukocyte Esterase Negative, Urine RBC Occasional, Urine WBC None, Ur Squamous Epith Cells Occasional, Urine Bacteria Trace Assessment and Plan *Assessment and plan (1) Perianal abscess: Status: Acute Category: Medical Code(s): K61.0 - Anal abscess Plan: Continue antibiotics as per primary service NPO after midnight for incision and drainage tomorrow I have discussed the risks and benefits including, but not limited to: Bleeding Infection Damage to surrounding tissue Inherent risks of sedation The patient agrees to proceed.
[2024-06-16] VITALS (22 sets, daily range): BP systolic 107–165; BP diastolic 57–91; PULSE 67–90; RESP 12–18; TEMP 36.2–37.3; O2SAT 88–99; BMI 39.3
[2024-06-16] MEDS: PIPERCILLIN/TAZO 3.375 GM in 0.9 % SODIUM CHLORIDE 50 ML IV ×4 (04:42→22:26)
--- NOTE | 2024-06-16 05:00 | PC.NURSE ---
Pt has had moderate drainage from abcess this shift. Pt admits to being uncomfortable but denies needs for pain medication.
[2024-06-16 06:30] LABS: Basophils # 0.1 K/mm3 (0-0.2); Basophils % 0.5 % (0.1-2.0); Eosinophils # 0.2 K/mm3 (0.0-0.4); Eosinophils % 1.8 % (0.1-12.0); Hematocrit 47.5 % (42.0-52.0); Hemoglobin 16.6 g/dL (14.1-18.0); Lymphocytes # 1.7 K/mm3 (0.7-4.5); Lymphocytes % 17.1 % (10-50); Mean Corpuscular HGB Conc 34.9 g/dL (31.8-35.4); Mean Corpuscular Hemoglobin 30.7 pg (27.0-31.2); Mean Platelet Volume 7.2 fl (7.4-10.4); Monocytes # 0.8 K/mm3 (0.1-1.0); Monocytes % 7.9 % (1.7-9.3); Neutrophils % 72.7 % (37.0-80.0); Platelet Count 152 K/mm3 (142-424); Red Cell Distribution Width 14.1 % (11.5-17.5); White Blood Count 9.7 K/mm3 (4.8-10.8)
[2024-06-16 06:43] LABS: Alanine Aminotransferase 18 U/L (12-78); Albumin Level 3.3 g/dl (3.5-5.0); Albumin/Globulin Ratio 1.3 (1.1-1.8); Alkaline Phosphatase 72 U/L (38-126); Aspartate Amino Transferase 22 U/L (17-59); Bilirubin,Total 0.8 mg/dl (0.2-1.3); Blood Urea Nitrogen 11 mg/dl (9-20); Calcium 8.2 mg/dl (8.4-10.2); Carbon Dioxide 28 mmol/L (22.0-30.0); Chloride 103 mmol/L (98-107); Creatinine Clearance Estimated 132 mL/min (50-200); Estimated Glomerular Filt Rate 70 ml/min (>60); GFR (African American) 85 ML/MIN (>60); Globulin 2.6 g/dL (1.3-3.2); Glucose 106 mg/dl (74-100); Magnesium 2.1 mg/dl (1.6-2.3); Sodium 137 mmol/L (136-145); Total Protein,Serum 5.9 g/dl (6.3-8.2)
--- NOTE | 2024-06-16 06:46 | EXP.SURG.PN ---
Subjective Narrative: Currently resting Exam Data for Last 24 hours Vital signs and Labs for Last 24 Hours: Temp Pulse Resp BP Pulse Ox O2 Del Method 99.2 F 70 18 138/63 99 Room Air 06/16/24 04:00 06/16/24 04:00 06/16/24 04:00 06/16/24 04:00 06/16/24 04:00 06/16/24 06:44 Laboratory Results - last 24 hr 06/15/24 07:43: WBC 13.2 H, RBC 5.94, Hgb 18.3 H, Hct 54.1 H, MCV 91.1, MCH 30.6, MCHC 33.6, RDW 13.8, Plt Count 174, MPV 7.6, Neut % (Auto) 83.0 H, Lymph % (Auto) 10.7, [place] % (Auto) 4.9, Eos % (Auto) 1.0, Baso % (Auto) 0.4, Neut # (Auto) 11.0 H, Lymph # (Auto) 1.4, [place] # (Auto) 0.7, Eos # (Auto) 0.1, Baso # (Auto) 0.1, Sodium 139, Potassium 3.8, Chloride 101, Carbon Dioxide 27, Anion Gap 14.8, BUN 11, Creatinine 1.00, Estimated Creat Clear 144, Estimated GFR 78, Est GFR ( Amer) 95, Glucose 176 H, Calcium 9.1, Total Bilirubin 1.0, AST 25, ALT 30, Alkaline Phosphatase 76, Total Protein 7.1, Albumin 4.2, Globulin 2.9, Albumin/Globulin Ratio 1.4, HIV 1&2 Antibody Rapid Nonreactive 06/15/24 10:55: Urine Color Yellow, Urine Appearance Clear, Urine pH 6.5, Ur Specific [place] 1.015, Urine Protein Negative, Urine Glucose (UA) 1+, Urine Ketones Negative, Urine Blood Negative, Urine Nitrate Negative, Urine Bilirubin Negative, Urine Urobilinogen 0.2, Ur Leukocyte Esterase Negative, Urine RBC Occasional, Urine WBC None, Ur Squamous Epith Cells Occasional, Urine Bacteria Trace 06/16/24 05:57: WBC 9.7 D, RBC 5.40, Hgb 16.6, Hct 47.5, MCV 88.0, MCH 30.7, MCHC 34.9, RDW 14.1, Plt Count 152, MPV 7.2 L, Neut % (Auto) 72.7, Lymph % (Auto) 17.1, [place] % (Auto) 7.9, Eos % (Auto) 1.8, Baso % (Auto) 0.5, Neut # (Auto) 7.0, Lymph # (Auto) 1.7, [place] # (Auto) 0.8, Eos # (Auto) 0.2, Baso # (Auto) 0.1, Sodium 137, Chloride 103, Carbon Dioxide 28, BUN 11, Creatinine 1.10, Estimated Creat Clear 132, Estimated GFR 70, Est GFR ( Amer) 85, Glucose 106 H D, Calcium 8.2 L, Magnesium 2.1, Total Bilirubin 0.8, AST 22, ALT 18 D, Alkaline Phosphatase 72, Total Protein 5.9 L, Albumin 3.3 L D, Globulin 2.6, Albumin/Globulin Ratio 1.3 I & O for Last 24 hours: Intake & Output 06/13/24 06/14/24 06/15/24 06/16/24 11:59 11:59 11:59 11:59 Intake Total 920 / 920 Output Total 0 / 0 Balance 920 / 920 Weight 263 lb 265 lb 8 oz Constitutional Constitutional: no acute distress Comments: Patient currently resting. Further examination deferred. Progress Note: A&P Assessment and plan (1) Perianal abscess: Status: Acute Assessment and plan: Continue antibiotics as per primary service Incision and drainage planned for later today I have discussed the risks and benefits including, but not limited to: Bleeding Infection Damage to surrounding tissue Inherent risks of sedation The patient agrees to proceed. (2) Sepsis: Status: Acute
[2024-06-16 06:48] LABS: C-Reactive Protein 100.9 mg/L (0-4)
[2024-06-16 07:06] LABS: Anion Gap 9.5 mEq/L (5-15); Potassium 3.5 mmoL/L (3.5-5.1)
[2024-06-16 07:33] LABS: HCV Ab Non Reactive (Non Reactive)
[2024-06-16] MEDS: AMLODIPINE 10MG TABLET 10 MG PO (09:05)
--- NOTE | 2024-06-16 09:53 | P.PNANES_ITS ---
[facility] Disclaimer: The information contained in this section may have been updated after the patient was seen, as this information can be updated by other users. Medical History Injury of right rotator cuff HLD (hyperlipidemia) HTN (hypertension) Surgical History S/P left knee arthroscopy S/P colon polypectomy Family History Other Cancer Social History Smoking Status: Never smoker alcohol intake: current alcohol intake frequency: a few times a week substance use type: other current occupational status: employed household members: spouse housing: house current occupation: [employer] district caffeine: Yes [facility] Anesthesia Checklist Patient Identification Patient Identification: Arm Band and Verbal (Name & ) Structural Data Admitted From: Inpatient Planned Operative Procedure/s: I & D perianal abscess Consent for Planned Operative Procedure(s) Verified: Yes Verified Documents: Surgical Consent and History and Physical NPO Status Verified Time NPO: 00:00 Additional verifications Anesthesia Reactions: Yes (Difficult intubation) Hx Blood Transfusions: No Blood Transfusion Reaction: No Airway Assessment Mallampati Score:: Class IV C-Spine Mobility Assessed: Yes TMJ Mobility Assessed: Yes Dentition: Poor Dentition (Loose tooth - Front upper. Patient and family member understand risk of damage. Wish to proceed. ) Neurological Assessment Level of Consciousness: Awake Hx Seizures: No Numbness or tingling in extremities: No Anesthesia Plan Anesthesia Risk discussed: Yes Anesthesia Plan: Verified ASA Class: III Anesthesia Type: General
[2024-06-16] MEDS: LIDOCAINE 1% 20ML MDV 20 ML (10:37)
--- NOTE | 2024-06-16 10:51 | P.OP_ITS ---
Date of procedure: 06/16/24 Pre-op Diagnosis:: Posterior perianal abscess Post-op Diagnosis:: Same Procedure performed:: Incision and drainage of perianal abscess Surgeon:: Bro Ordonez MD [employer]PER[employer]:: Robert Carson Anesthesia: local and LMA Estimated blood loss (mL): 15 Operative findings:: Spontaneous internal drainage along posterior anal canal with smaller external/perianal opening Operative note:: After informed consent was obtained the patient was taken to the operating room and placed in the supine position. General anesthesia with laryngeal mask airway was achieved. He was then transferred to a modified lithotomy position. Inspection and digital rectal exam revealed spontaneous internal drainage with a large opening (mucosal rent) along posterior anal canal margin. A smaller perianal margin/external opening was also noted. Electrocautery was utilized to extend the external opening. The cavity was evacuated via suction. A single vessel loop was secured in position as a draining seton . Dressings were applied and the patient was transferred to recovery in stable condition after removal of his laryngeal mask airway. Condition: stable Disposition: PACU Specimens:: None Complications:: No immediate
--- NOTE | 2024-06-16 11:20 | EXP.ANES.I ---
[facility] Anesthesia Record Part I Anesthesia Record I Intake, IV Amount: 300 Hydration: Adequate Estimated blood loss (mL): 15 Urine output (mL): 0 Blood Products used (#): none Blood Pressure: 144/81 SaO2: 88 Pulse Rate: 67 Airway Patency: Patent Respiratory Rate: 12 Temperature: 97.4 F Patient is:: Drowsy and Other Stable to PACU at:: 10:55
[2024-06-16] MEDS: MORPHINE 2MG/ML SYRINGE 2 MG IV (11:25)
[2024-06-16] MEDS: HYDROMORPHONE 2MG/ML SYRINGE 1 MG IV (11:47)
--- NOTE | 2024-06-16 12:04 | P.PN_ITS ---
Subjective *Date: 06/16/24 *Time: 12:05 Interval history: Patient feeling little less pain today after lesion expressed overnight. Had a bowel movement that was painful today. No fever overnight. Stable on room air. Medical Exam Vital signs and Labs for Last 24 Hours: Vital Signs Temp Pulse Pulse Resp BP BP Pulse Ox 06/16/24 11:25 97.4 F L 67 12 144/81 H 06/16/24 09:00 06/16/24 07:22 97.9 F 67 17 132/81 96 06/16/24 06:44 06/16/24 04:49 06/16/24 04:00 99.2 F 70 18 138/63 99 06/16/24 03:00 06/16/24 01:00 06/16/24 00:00 98.8 F 68 18 161/88 H 96 06/15/24 22:48 06/15/24 20:59 06/15/24 20:00 99.9 F H 76 16 152/88 H 95 06/15/24 19:41 06/15/24 18:47 06/15/24 17:00 06/15/24 16:00 98.7 F 85 18 159/102 H 96 06/15/24 15:00 06/15/24 13:00 06/15/24 12:15 98.1 F 81 18 135/81 95 O2 Del Method 06/16/24 11:25 06/16/24 09:00 Room Air 06/16/24 07:22 Room Air 06/16/24 06:44 Room Air 06/16/24 04:49 Room Air 06/16/24 04:00 Room Air 06/16/24 03:00 Room Air 06/16/24 01:00 Room Air 06/16/24 00:00 Room Air 06/15/24 22:48 Room Air 06/15/24 20:59 Room Air 06/15/24 20:00 Room Air 06/15/24 19:41 Room Air 06/15/24 18:47 Room Air 06/15/24 17:00 Room Air 06/15/24 16:00 Room Air 06/15/24 15:00 Room Air 06/15/24 13:00 Room Air 06/15/24 12:15 Room Air Intake and Output 06/15/24 06/16/24 06/16/24 23:59 07:59 15:59 Intake Total 360 / 920 290 / 590 300 / 590 Output Total 0 / 0 0 / 0 Balance 360 / 920 290 / 590 300 / 590 Intake: Intake, Oral Amount 360 / 870 240 / 240 Intake, Total IV Amount 50 / 350 300 / 350 Pipercillin/Tazo 3.375 gm In 0. 50 / 50 9 % Sodium Chloride 50 ml @ 100 mls/hr IV Q6H [facility] Rx#:[id number] Output: Output, Urine Amount 0 / 0 0 / 0 Other: Number of Voids 0 Number of Unmeasured Voids 1 1 Weight 120.429 kg Patient Weight 06/16/24 23:59 Weight 120.429 kg Laboratory Results - last 24 hr 06/15/24 07:43: Hepatitis C Antibody Non reactive, HIV 1&2 Antibody Rapid Nonreactive 06/16/24 05:57: WBC 9.7 D, RBC 5.40, Hgb 16.6, Hct 47.5, MCV 88.0, MCH 30.7, MCHC 34.9, RDW 14.1, Plt Count 152, MPV 7.2 L, Neut % (Auto) 72.7, Lymph % (Auto) 17.1, [place] % (Auto) 7.9, Eos % (Auto) 1.8, Baso % (Auto) 0.5, Neut # (Auto) 7.0, Lymph # (Auto) 1.7, [place] # (Auto) 0.8, Eos # (Auto) 0.2, Baso # (Auto) 0.1, Sodium 137, Potassium 3.5, Chloride 103, Carbon Dioxide 28, Anion Gap 9.5, BUN 11, Creatinine 1.10, Estimated Creat Clear 132, Estimated GFR 70, Est GFR ( Amer) 85, Glucose 106 H D, Calcium 8.2 L, Magnesium 2.1, Total Bilirubin 0.8, AST 22, ALT 18 D, Alkaline Phosphatase 72, C-Reactive Protein 100.9 H, Total Protein 5.9 L, Albumin 3.3 L D, Globulin 2.6, Albumin/Globulin Ratio 1.3 I & O for Labs for Last 24 Hours: Intake & Output 06/13/24 06/14/24 06/15/24 06/16/24 23:59 23:59 23:59 23:59 Intake Total 630 / 920 590 / 590 Output Total 0 / 0 0 / 0 Balance 630 / 920 590 / 590 Weight 116.261 kg 120.429 kg Constitutional: Present no acute distress, obese and cooperative Head: Present atraumatic and normocephalic ENT: Present normal exam Respiratory: Present normal respiratory effort; Absent rhonchi, wheezes or crackles Cardiac: Present Reg Rate and Rhythm GI: Present soft and normal bowel sounds; Absent distention or tenderness Extremities: Present normal inspection and full ROM Skin: Present intact; Absent erythema Neuro: Present Grossly Intact and moves all extremities Assessment and Plan *Assessment and plan (1) Sepsis: Status: Acute Category: Medical Code(s): A41.9 - Sepsis, unspecified organism (2) Perianal abscess: Status: Acute Category: Medical Code(s): K61.0 - Anal abscess (3) HTN (hypertension): Status: Acute Category: Medical Code(s): I10 - Essential (primary) hypertension (4) Class 2 obesity: Status: Chronic Category: Medical Code(s): E66.812 - Obesity, class 2 Plan 53-year-old male who presents with worsening pain in his bottom. Workup in the ER concerning for leukocytosis with CT showing and a rectal abscess. Discussed case with ER physician, request admission for further management. I agreed to admit for further management. Lesion drained somewhat overnight. Decision to take patient for I&D this morning. Surgery continuing to assist with care. Continue IV antibiotics with Zosyn. Continues to require inpatient management. Problems addressed as follows: Sepsis Perianal abscess -Continue Zosyn 3.375 g every 6 hours; anticipate transition to Augmentin at discharge to complete 7 days of antibiotics -White count improving, 9.7 this morning. Hemoglobin 16.6. Kidney function normal with BUN 11, creatinine 1.1. Repeat CBC, CMP, magnesium ordered for the morning. -Holding on vancomycin, no history of MRSA. -Continue Dilaudid 1 mg every 4 hours as needed for severe breakthrough pain, monitor for toxicity -Surgery performed this morning, tolerated well. Has draining seton in place. Concern for potential development of incontinence given proximity to anal sphincter. Continue monitoring overnight. Continue bowel regimen. Continue tamsulosin 0.4 mg nightly for BPH Continue amlodipine 10 mg daily for hypertension Hold statin and testosterone in the acute setting Obesity complicates all aspects of his care Full code Regular diet Holding anticoagulation pending surgery/debridement
--- NOTE | 2024-06-16 12:36 | SUR.PHASEI ---
patient oxygen saturations would not stay above 89% without being placed on 2 liters nasal cannula, patient was rating his pain a 6 on a scale of 1-10. per anesthesia 2mg of morphine was given and documented in the MAR.
--- NOTE | 2024-06-16 16:38 | PC.NURSE ---
aox4, tolerating room air at time of writing but did require 2lnc o2 support for a couple hours when he arrived from pacu. ambulating in room independently. was medicated for pain once upon arrival to floor with good effectiveness. has not c/o pain since dose of dilaudid given.
[2024-06-16] MEDS: TAMSULOSIN 0.4MG CAPSULE 0.4 MG PO (20:13)
[2024-06-17 04:00] VITALS: BP 124/70; PULSE 63; RESP 16; TEMP 36.6; O2SAT 92; BMI 38.5
[2024-06-17] MEDS: PIPERCILLIN/TAZO 3.375 GM in 0.9 % SODIUM CHLORIDE 50 ML IV (04:37)
[2024-06-17 06:48] LABS: Basophils % 0.3 % (0.1-2.0); Hematocrit 48.1 % (42.0-52.0); Hemoglobin 16.6 g/dL (14.1-18.0); Lymphocytes # 1.6 K/mm3 (0.7-4.5); Lymphocytes % 16.3 % (10-50); Mean Corpuscular HGB Conc 34.5 g/dL (31.8-35.4); Mean Corpuscular Hemoglobin 30.3 pg (27.0-31.2); Mean Corpuscular Volume 88.1 fl (80-94); Mean Platelet Volume 7.3 fl (7.4-10.4); Monocytes # 0.5 K/mm3 (0.1-1.0); Monocytes % 5.2 % (1.7-9.3); Neutrophils # 7.8 K/mm3 (1.8-7.8); Neutrophils % 78.2 % (37.0-80.0); Platelet Count 168 K/mm3 (142-424); Red Blood Count 5.46 M/mm3 (4.60-6.20); Red Cell Distribution Width 13.7 % (11.5-17.5); White Blood Count 9.9 K/mm3 (4.8-10.8)
[2024-06-17 06:56] LABS: Alanine Aminotransferase 32 U/L (12-78); Albumin Level 3.4 g/dl (3.5-5.0); Albumin/Globulin Ratio 1.3 (1.1-1.8); Alkaline Phosphatase 74 U/L (38-126); Anion Gap 7.9 mEq/L (5-15); Aspartate Amino Transferase 31 U/L (17-59); Bilirubin,Total 0.5 mg/dl (0.2-1.3); Blood Urea Nitrogen 11 mg/dl (9-20); Calcium 8.8 mg/dl (8.4-10.2); Carbon Dioxide 32 mmol/L (22.0-30.0); Chloride 104 mmol/L (98-107); Creatinine Clearance Estimated 143 mL/min (50-200); Estimated Glomerular Filt Rate 78 ml/min (>60); GFR (African American) 95 ML/MIN (>60); Globulin 2.6 g/dL (1.3-3.2); Glucose 129 mg/dl (74-100); Potassium 3.9 mmoL/L (3.5-5.1); Sodium 140 mmol/L (136-145)
[2024-06-17 07:02] LABS: C-Reactive Protein 58.4 mg/L (0-4)
--- NOTE | 2024-06-17 07:29 | P.DS_ITS ---
General Admission date:: 06/15/24 Discharge date: 06/17/24 HPI HPI HPI: Mr. Talbert is a 53-year-old male with history of hypertension and obesity. Presented to the ER with complaint of significant pain in perianal area. Pain has been going on for at least the past 5 days. Noticed some soreness around his bottom and saw his PCP on Thursday. Concern for prostatitis since they initiated him on ciprofloxacin. Symptoms have only worsened. Occasional chills and feeling feverish. Denies any nausea or vomiting. Has had significant pain with defecation. No history of hemorrhoids. On evaluation in the ER, found to have white count of 13. Imaging of abdomen and pelvis with perianal abscess. Medicine consulted for admission and further management. Surgery consulted for debridement. On evaluation after arrival to the floor, patient states that it expressed itself somewhat on Thursday. [place] fluid around his bottom. Pain is only gotten worse over the past several days. Hurts to sit. Denies any history of diabetes or kidney dysfunction. Hospital Course Hospital Course Hospital Course: 53-year-old male who presents with worsening pain in his bottom. Workup in the ER concerning for leukocytosis with CT showing and a rectal abscess. Discussed case with ER physician, request admission for further management. I agreed to admit for further management. Lesion drained spontaneously first night of admission. Patient was taken for I&D. Surgery consulted to assist with care. Initiated on broad-spectrum antibiotics. Seton placed during surgery. Monitored for an additional 24 hours after procedure. Doing well. Stable to discharge home to complete antibiotics with outpatient follow-up. Problems addressed as follows: Sepsis Perianal abscess -Patient presented with elevated inflammatory markers with CRP of 100, significant perianal pain. Found to have perianal abscess. Lesion drained on first night of admission. Was taken to the OR and found to have communicating lesion between anorectal vault and just lateral to anus on gluteus. Was initially on Zosyn for empiric treatment during admission. Lesion drained with placement of draining seton in the OR. Patient overall doing well. Normal white count of 9.9 on morning of discharge. Inflammatory markers improving with CRP of 58. Will transition to Augmentin to complete 7 days total of therapy. Short course of pain medication prescribed at discharge. Plan to follow-up with surgery in the next 1 to 2 weeks for reevaluation and removal of seton drain. Having bowel movements. Continue stool softener. Continue tamsulosin 0.4 mg nightly for BPH Continue amlodipine 10 mg daily for hypertension Resume home statin and testosterone at discharge Exam Data for Last 24 hours Vital signs and Labs for Last 24 Hours: Temp Pulse Resp BP Pulse Ox O2 Del Method O2 Flow Rate 97.9 F 63 16 124/70 92 L Room Air 2 06/17/24 04:00 06/17/24 04:00 06/17/24 04:00 06/17/24 04:00 06/17/24 04:00 06/17/24 04:00 06/16/24 13:00 Laboratory Results - last 24 hr 06/15/24 07:43: Hepatitis C Antibody Non reactive 06/17/24 05:54: WBC 9.9, RBC 5.46, Hgb 16.6, Hct 48.1, MCV 88.1, MCH 30.3, MCHC 34.5, RDW 13.7, Plt Count 168, MPV 7.3 L, Neut % (Auto) 78.2, Lymph % (Auto) 16.3, [place] % (Auto) 5.2, Eos % (Auto) 0.0 L, Baso % (Auto) 0.3, Neut # (Auto) 7.8, Lymph # (Auto) 1.6, [place] # (Auto) 0.5, Eos # (Auto) 0.0, Baso # (Auto) 0.0, Sodium 140, Potassium 3.9, Chloride 104, Carbon Dioxide 32 H, Anion Gap 7.9, BUN 11, Creatinine 1.00, Estimated Creat Clear 143, Estimated GFR 78, Est GFR ( Amer) 95, Glucose 129 H D, Calcium 8.8, Total Bilirubin 0.5, AST 31 D, ALT 32 D, Alkaline Phosphatase 74, C-Reactive Protein 58.4 H D, Total Protein 6.0 L, Albumin 3.4 L, Globulin 2.6, Albumin/Globulin Ratio 1.3 I & O for Last 24 hours: Intake & Output 06/14/24 06/15/24 06/16/24 06/17/24 23:59 23:59 23:59 23:59 Intake Total 630 / 920 1670 / 2200 530 / 530 Output Total 0 / 0 0 / 0 0 / 0 Balance 630 / 920 1670 / 2200 530 / 530 Weight 116.261 kg 120.429 kg 118.206 kg Constitutional Constitutional: no acute distress, obese and cooperative *Routine HEENT Exam Head: Present normocephalic Eye: Present EOMI and PERRL ENT: Present mucous membranes moist *Routine Neck Exam Neck: Present supple; Absent lymphadenopathy *Routine Respiratory Exam Respiratory: Present CTA bilaterally *Routine Cardiovascular Exam Cardiovascular: Present RRR *Routine Abdominal Exam Abdominal: Present soft and normoactive bowel sounds; Absent tenderness *Routine Rectal Exam Comments: Seton in place, no significant drainage, left gluteus benzene still utility operator to palpation *Routine Exam Patient deferred: penile exam *Routine Extremities Exam Extremities: Absent cyanosis, clubbing or edema *Routine Skin Exam Skin: Present warm; Absent rash *Routine Neurological Exam Neurological: Present alert, oriented X3 and moving all extremities; Absent altered mental status Results Data Completed and Pending Labs on day of discharge: Labs from last 24 hours 06/17/24 06/15/24 05:54 07:43 WBC 9.9 RBC 5.46 Hgb 16.6 Hct 48.1 MCV 88.1 MCH 30.3 MCHC 34.5 RDW 13.7 Plt Count 168 MPV 7.3 L Neut % (Auto) 78.2 Lymph % (Auto) 16.3 [place] % (Auto) 5.2 Eos % (Auto) 0.0 L Baso % (Auto) 0.3 Neut # (Auto) 7.8 Lymph # (Auto) 1.6 [place] # (Auto) 0.5 Eos # (Auto) 0.0 Baso # (Auto) 0.0 Sodium 140 Potassium 3.9 Chloride 104 Carbon Dioxide 32 H Anion Gap 7.9 BUN 11 Creatinine 1.00 Estimated Creat Clear 143 Estimated GFR 78 Est GFR ( Amer) 95 Glucose 129 H D Calcium 8.8 Total Bilirubin 0.5 AST 31 D ALT 32 D Alkaline Phosphatase 74 C-Reactive Protein 58.4 H D Total Protein 6.0 L Albumin 3.4 L Globulin 2.6 Albumin/Globulin Ratio 1.3 Hepatitis C Antibody Non reactive DS: Diagnosis Discharge Diagnosis (1) Sepsis: Status: Acute Code(s): A41.9 - Sepsis, unspecified organism (2) Perianal abscess: Status: Acute Code(s): K61.0 - Anal abscess (3) HTN (hypertension): Status: Acute Code(s): I10 - Essential (primary) hypertension (4) Class 2 obesity: Status: Chronic Code(s): E66.812 - Obesity, class 2 Meds Home Medications and Allergies Home Medications ?Medication ?Instructions ?Recorded ?Confirmed ?Type amlodipine 10 mg tablet 10 mg PO DAILY 08/09/20 06/15/24 History rosuvastatin 20 mg tablet 20 mg PO DAILY 08/09/20 06/15/24 History tamsulosin 0.4 mg capsule 0.4 mg PO DAILY 06/15/24 06/15/24 History testosterone cypionate 200 mg/mL 200 mg IM Q14D 06/15/24 06/15/24 History intramuscular oil amoxicillin 500 mg-potassium 1 tab PO TID 5 days #15 tabs 06/17/24 Rx clavulanate 125 mg tablet (Augmentin) oxycodone-acetaminophen 5 mg-325 1 tab PO Q6HP PRN Moderate To 06/17/24 Rx mg tablet Severe Pain (4-10) #11 tabs New Prescriptions to Start Prescriptions: amoxicillin-pot clavulanate [Augmentin] Robert Kohli oxycodone-acetaminophen Robert Kohli Allergies Allergy/AdvReac Type Severity Reaction Status Date / Time lisinopril Allergy Mild Verified 10/18/21 09:07 Discharge Plan Disposition Patient Disposition: Home, Self-Care Follow up Plan Follow up with: Ranjana Rollins APRN [Primary Care Provider] - 06/24/24 11:30 am (appointment with Carmita Arthur) Bro Ordonez MD [Staff Physician] - 06/22/24 10:30 am Prescriptions/Medication Reconciliation: New amoxicillin-pot clavulanate [Augmentin] 500-125 mg tablet 1 tab PO TID 5 Days Qty: 15 0RF oxycodone-acetaminophen 5-325 mg Tablet 1 tab PO Q6HP PRN (Reason: Moderate To Severe Pain (4-10)) Qty: 11 0RF Continued amlodipine 10 MG tablet 10 mg PO DAILY rosuvastatin 20 MG tablet 20 mg PO DAILY testosterone cypionate 200 mg/mL oil 200 mg IM Q14D Patient Comments: inject 1ml into THE muscle every TWO WEEKS tamsulosin 0.4 mg capsule 0.4 mg PO DAILY Problem Reconciliation Problems Reviewed?: Yes Patient Discharge Instructions ACTIVITY: Continue current activity DIET: continue same diet Patient Instructions: DI for Incision and Drainage of a Skin Abscess, DI for Surgical Site Infection, DI for Anal Abscess Print Language: [place] Providers Primary Care Provider: Ranjana Rollins Admit Provider: Robert Kohli Attending Provider: Robert Kohli
[2024-06-17] MEDS: OXYCODONE 5MG W/APAP 325MG TABLET 1 EACH PO (07:46)
[2024-06-17] MEDS: AMLODIPINE 10MG TABLET 10 MG PO (07:54)
[2024-06-17 08:00] VITALS: BP 137/77; PULSE 104; RESP 20; TEMP 36.9; O2SAT 98
--- NOTE | 2024-06-17 08:06 | EXP.ANES.II ---
[facility] Anesthesia Record Part II Anesthesia Record Part II Discharge Time: 12:25 Destination: Medical Surgical Department PACU nurse assessment reviewed?: Yes Patient Condition:: Good Anesthesia Complications:: None Swallowing reflex intact?: Yes Airway Patency: Patent Cyanosis?: No Blood Pressure: 144/71 SaO2: 94 Respiratory Rate: 16 Pulse Rate: 71 Temperature: 97.2 F Mental Status: Alert & Oriented Pain level:: 0 Nausea and/or vomitting:: None Intake, IV Amount: 0 Hydration: Adequate
[2024-06-17 08:07] VITALS: BP 144/71; PULSE 71; RESP 16; TEMP 36.2; O2SAT 94
--- NOTE | 2024-06-17 08:41 | EXP.SURG.PN ---
Subjective Patient reports: no new complaints Exam Data for Last 24 hours Vital signs and Labs for Last 24 Hours: Temp Pulse Resp BP Pulse Ox O2 Del Method O2 Flow Rate 97.9 F 63 16 124/70 92 L Room Air 2 06/17/24 04:00 06/17/24 04:00 06/17/24 08:07 06/17/24 04:00 06/17/24 04:00 06/17/24 08:00 06/16/24 13:00 Laboratory Results - last 24 hr 06/17/24 05:54: WBC 9.9, RBC 5.46, Hgb 16.6, Hct 48.1, MCV 88.1, MCH 30.3, MCHC 34.5, RDW 13.7, Plt Count 168, MPV 7.3 L, Neut % (Auto) 78.2, Lymph % (Auto) 16.3, [place] % (Auto) 5.2, Eos % (Auto) 0.0 L, Baso % (Auto) 0.3, Neut # (Auto) 7.8, Lymph # (Auto) 1.6, [place] # (Auto) 0.5, Eos # (Auto) 0.0, Baso # (Auto) 0.0, Sodium 140, Potassium 3.9, Chloride 104, Carbon Dioxide 32 H, Anion Gap 7.9, BUN 11, Creatinine 1.00, Estimated Creat Clear 143, Estimated GFR 78, Est GFR ( Amer) 95, Glucose 129 H D, Calcium 8.8, Total Bilirubin 0.5, AST 31 D, ALT 32 D, Alkaline Phosphatase 74, C-Reactive Protein 58.4 H D, Total Protein 6.0 L, Albumin 3.4 L, Globulin 2.6, Albumin/Globulin Ratio 1.3 I & O for Last 24 hours: Intake & Output 06/14/24 06/15/24 06/16/24 06/17/24 11:59 11:59 11:59 11:59 Intake Total 1220 / 1220 2210 / 2210 Output Total 0 / 0 0 / 0 Balance 1220 / 1220 2210 / 2210 Weight 263 lb 265 lb 8 oz 260 lb 9.6 oz Constitutional Constitutional: no acute distress *Routine Respiratory Exam Respiratory: Absent respiratory distress *Routine Cardiovascular Exam Cardiovascular: Absent tachycardia Progress Note: A&P Assessment and plan (1) Perianal abscess: Status: Acute Assessment and plan: Overall, doing well status post incision and drainage/seton placement. Okay from surgical standpoint for discharge home with outpatient follow-up Complete course of antibiotics as per primary service
--- NOTE | 2024-06-21 10:18 | SW/DCPLANNER ---
Called Patient x2. Patient didnt answer the first time and was able to leave a message the 2nd time with a call back number. Jr Go
== END 2024-06-17 13:06 | disposition home or self-care (01) ==
LOC: ER 09:18 → 2ND 11:05
PROVIDERS: Surgery; Admitting Provider Internal Medicine Adolescent Medicine; Emergency Provider Emergency Medicine; PCP Nurse Practitioner; Visit Provider Internal Medicine Adolescent Medicine
PROC: (CPT 46045; principal; 2024-06-16 10:40)
DX: K61.0 Anal abscess (principal); I10 Essential (primary) hypertension; E66.812 Obesity, class 2; Z68.38 Body mass index [BMI] 38.0-38.9, adult; Z79.899 Other long term (current) drug therapy
CPT/HCPCS: 46045; 36415; 74177; 80053; 81001; 83735; 85025; 86140; 86803; 87086; 87389; 99285; G0378; J1100; J1171; J2250; J2270; J2405; J2543; J3010; Q9967

== ENCOUNTER 2024-10-04 15:32 | Outpatient (CLI) | payer BC, SELFPAY ==
--- NOTE | 2024-10-04 15:55 | ECG_ITS ---
APPROVED REPORT Exam: Resting ECG HR:70 bpm ECG Measurements Heart Rate 70 AXES KS 177 P 44 QRSd 107 QRS -35 QT 384 T -74 QTc 405 Conclusion SINUS RHYTHM LEFT AXIS DEVIATION [QRS AXIS < -30] PATTERN CONSISTENT WITH PULMONARY DISEASE NONSPECIFIC T-WAVE ABNORMALITY ABNORMAL ECG UNCONFIRMED REPORT Electronically signed by : Denton Cervantes MD 10/10/2024 08:55:47
[2024-10-04 15:57] VITALS: BMI 36.9
[2024-10-04 19:31] LABS: Basophils # 0.1 K/mm3 (0-0.2); Basophils % 0.6 % (0.1-2.0); Eosinophils # 0.2 K/mm3 (0.0-0.4); Eosinophils % 1.7 % (0.1-12.0); Hematocrit 47.5 % (42.0-52.0); Hemoglobin 16.7 g/dL (14.1-18.0); Lymphocytes % 22.7 % (10-50); Mean Corpuscular HGB Conc 35.2 g/dL (31.8-35.4); Mean Corpuscular Volume 85.4 fl (80-94); Mean Platelet Volume 10.3 fl (7.4-10.4); Monocytes # 0.7 K/mm3 (0.1-1.0); Monocytes % 7.4 % (1.7-9.3); Neutrophils % 67.4 % (37.0-80.0); Platelet Count 199 K/mm3 (142-424); Red Blood Count 5.56 M/mm3 (4.60-6.20); Red Cell Distribution Width 12.7 % (11.5-17.5); White Blood Count 8.9 K/mm3 (4.8-10.8)
[2024-10-04 19:38] LABS: Anion Gap 9.5 mEq/L (5-15); Blood Urea Nitrogen 14 mg/dl (9-20); Calcium 8.8 mg/dl (8.4-10.2); Carbon Dioxide 31 mmol/L (22.0-30.0); Chloride 103 mmol/L (98-107); Creatinine Clearance Estimated 123 mL/min (50-200); Estimated Glomerular Filt Rate 70 ml/min (>60); GFR (African American) 84 ML/MIN (>60); Glucose 118 mg/dl (74-100); Potassium 3.5 mmoL/L (3.5-5.1); Sodium 140 mmol/L (136-145)
== END 2024-10-04 23:59 | disposition home or self-care (01) ==
LOC: PREOP 15:32
PROVIDERS: Nurse Anesthetist, Certified Registered; PCP Nurse Practitioner; Visit Provider Surgery
DX: Z01.810 Encounter for preprocedural cardiovascular examination (principal); Z01.812 Encounter for preprocedural laboratory examination; J98.4 Other disorders of lung; R94.31 Abnormal electrocardiogram [ECG] [EKG]
CPT/HCPCS: 80048; 85025; 93005

== ENCOUNTER 2024-10-06 06:03 | Day surgery (SDC) | payer BC, SELFPAY ==
[2024-10-04 17:08] VITALS: BMI 36.9
[2024-10-06] VITALS (9 sets, daily range): BP systolic 122–160; BP diastolic 67–98; PULSE 61–79; RESP 10–18; TEMP 36.4–36.7; O2SAT 94–97
[2024-10-06] MEDS: 0.9 % SODIUM CHLORIDE 1000ML 1,000 ML 25 ML IV (06:19)
--- NOTE | 2024-10-06 06:52 | EXP.ANES.CKL ---
[facility] Disclaimer: The information contained in this section may have been updated after the patient was seen, as this information can be updated by other users. 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 caffeine: Yes Have you lived/traveled outside [place] in past 30 days?: No Contact w/someone who lives/traveled outside US past 30 days?: No Exposure to someone with infectious disease in past 14 days?: No Do you have a fever (greater than 100.4 F or 38 C)?: No Have you tested positive for COVID-19: No Exposed to someone with COVID-19 in past 14 days?: No Do you have a sore throat?: No Do you have a cough?: No Do you have any weakness?: No Do you have any diarrhea?: No Are you experiencing any unusual bleeding?: No Do you have any muscle aches/pain?: No Do you have any abdominal pain?: No Are you experiencing loss of taste or smell?: No [facility] Anesthesia Checklist Patient Identification Patient Identification: Arm Band and Family Structural Data Admitted From: Home Planned Operative Procedure/s: EUA Consent for Planned Operative Procedure(s) Verified: Yes Verified Documents: Surgical Consent and History and Physical NPO Status Verified Time NPO: 00:00 Additional verifications Patient : No Anesthesia Reactions: Yes (Difficult intubation) Hx Blood Transfusions: No Blood Transfusion Reaction: No Cephalosporin Allergy: No Previous Colonoscopy: Yes Airway Assessment Mallampati Score:: Class III C-Spine Mobility Assessed: Yes TMJ Mobility Assessed: Yes Dentition: Good Dentition Neurological Assessment Level of Consciousness: Awake, Alert, Appropriate and Follows Commands Hx Seizures: No Numbness or tingling in extremities: No Anesthesia Plan Anesthesia Risk discussed: Yes ASA Class: II Anesthesia Type: General
[2024-10-06] MEDS: CEFAZOLIN SODIUM 2 GM in 0.9 % SODIUM CHLORIDE 100 ML IV (07:15)
[2024-10-06] MEDS: METRONIDAZ/SOD CHL 500 MG/100 ML PIGGYBACK 100 MG IV (07:15)
--- NOTE | 2024-10-06 07:37 | P.OP_ITS ---
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 The patient is no longer able to tolerate tightening of seton in the office. Post-op Diagnosis:: Same Procedure performed:: Tightening of seton Surgeon:: Bro Ordonez MD [employer] SUPERVISOR:: Robert Carson Anesthesia: LMA Estimated blood loss (mL): 0 Operative findings:: Vessel loop seton tightened to the degree possible utilizing silk tie Operative note:: After informed consent was obtained the patient was taken to the operating room and placed in the supine position. General anesthesia with laryngeal mask airway was achieved. He was transferred to a modified lithotomy position. Inspection and digital rectal exam revealed moderate loosening of prior seton. The seton was placed under tension and silk ties were utilized (x 2) at the skin margin in order to tighten the seton to the degree possible. The patient was then transferred to recovery in stable condition. Condition: stable Disposition: PACU Specimens:: None Complications:: No immediate
--- NOTE | 2024-10-06 07:48 | EXP.ANES.I ---
[facility] Anesthesia Record Part I Anesthesia Record I Intake, IV Amount: 600 Hydration: Adequate Estimated blood loss (mL): 0 Urine output (mL): 0 Blood Products used (#): none Blood Pressure: 129/67 SaO2: 97 Pulse Rate: 79 Airway Patency: Patent Respiratory Rate: 10 Temperature: 97.5 F Patient is:: Drowsy and Stable Stable to PACU at:: 07:49
--- NOTE | 2024-10-06 09:19 | P.PNANES_ITS ---
[facility] Anesthesia Record Part II Anesthesia Record Part II Discharge Time: 08:10 Destination: Surgical Day Care (OP Surgery) PACU nurse assessment reviewed?: Yes Patient Condition:: Good Anesthesia Complications:: None Swallowing reflex intact?: Yes Airway Patency: Patent Cyanosis?: No Blood Pressure: 141/96 SaO2: 97 Respiratory Rate: 16 Pulse Rate: 74 Temperature: 97.5 F Mental Status: Alert & Oriented Pain level:: 0 Nausea and/or vomitting:: None Intake, IV Amount: 0 Hydration: Adequate
== END 2024-10-06 08:42 | disposition home or self-care (01) ==
PROVIDERS: PCP Nurse Practitioner; Visit Provider Surgery
PROC: (CPT 46020; principal; 2024-10-06 07:30)
DX: K60.30 Anal fistula, unspecified (principal)
CPT/HCPCS: 46020; 96374; J0690; J1100; J2405; J3010; J7030

== ENCOUNTER 2025-01-23 07:00 | Outpatient (RCR) | payer BC, SELFPAY | END 2025-01-23 23:59 | disposition home or self-care (01) | LOC: PT.CARL 07:00 | PROVIDERS: PCP Nurse Practitioner; Visit Provider Student in an Organized Health Care Education/Training Program | DX: M50.30 Other cervical disc degeneration, unspecified cervical region (principal) | CPT/HCPCS: 97035; 97110; 97140; 97161 ==

== ENCOUNTER 2025-02-01 06:51 | Outpatient (RCR) | payer BC, SELFPAY | END 2025-02-01 23:59 | disposition home or self-care (01) | LOC: PT.CARL 06:51 | PROVIDERS: PCP Nurse Practitioner; Visit Provider Student in an Organized Health Care Education/Training Program | DX: M50.30 Other cervical disc degeneration, unspecified cervical region (principal) | CPT/HCPCS: 97110; 97112; 97530 ==